=== PATIENT | male | born 1950 | race Caucasian/White ===

== ENCOUNTER 2016-11-09 18:16 | Emergency (ER) | payer OTHER, MEDICARE, BC ==
[2016-11-09 20:16] VITALS: BP 130/89
--- NOTE | 2016-11-09 20:37 | EDM.PDOC ---
ED HPI HEAD INJURY - General Chief Complaint: Head Injury Stated Complaint: FELL AT OPAL;[phone] Time Seen by Provider: 11/09/16 20:32 Source of Information: Reports: Patient History Limitations: Reports: No limitations - History of Present Illness INITIAL COMMENTS - FREE TEXT/NARRATIVE: was leaving [facility] with foods and tripped on something in ground landing on right side but c/o pain left should unable to raise without pain. states no LOC but did scratch up right face and right shoulder can move freely without pain but not left. - Related Data Allergies/ADRs: Allergies Allergy/AdvReac Type Severity Reaction Status Date / Time environmental Allergy Cannot Uncoded 11/09/16 19:30 Remember Home Meds: Home Meds Allopurinol [Zyloprim] 2 tab PO DAILY 11/05/13 [History] Aspirin [Ecotrin] 1 tab PO DAILY 11/05/13 [History] Cholecalciferol (Vitamin D3) [Vitamin D] 1 cap PO DAILY 11/05/13 [History] Digoxin [Digox] 1 tab PO DAILY 11/05/13 [History] Ezetimibe/Simvastatin [Vytorin 10-40 mg Tablet] 1 tab PO BEDTIME 11/05/13 [ History] Gabapentin [Neurontin] 600 mg PO BID 11/05/13 [History] Glimepiride [Amaryl] 6 mg PO BRK 11/05/13 [History] Isosorbide Mononitrate [Imdur] 30 mg PO DAILY 11/05/13 [History] Canagliflozin [Invokana] 100 mg PO DAILY 11/28/14 [History] Past Medical History HEENT History: Reports: Allergic rhinitis, Hard of hearing, Sinusitis, Other ( see below) Other HEENT History: deviated septum Cardiovascular History: Reports: Afib, CAD, High cholesterol, Stents, Other ( see below) Other Cardiovascular History: anticoagulant use Respiratory History: Reports: Sleep apnea Genitourinary History: Reports: BPH, Renal disease, Retention, urinary, Other ( see below) Other Genitourinary History: renal cyst, ED, frequency Musculoskeletal History: Reports: Arthritis Neurological History: Reports: Neuropathy, diabetic Endocrine/Metabolic History: Reports: Diabetes, type II Hematologic History: 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 Dermatologic History: Reports: Other (see below) Other Dermatologic History: actinic keratosis, BCC, - Past Surgical History Cardiovascular Surgical History: Reports: Coronary artery stent GI Surgical History: Reports: Colonoscopy Musculoskeletal Surgical History: Reports: Carpal tunnel Social & Family History - Tobacco Use Smoking Status *Q: Never Smoker Second Hand Smoke Exposure: No - Caffeine Use Caffeine Use: Reports: Coffee - Alcohol Use Days Per Week of Alcohol Use: 0 - Recreational Drug Use Recreational Drug Use: No ED ROS GENERAL - Review of Systems Review Of Systems: ROS reveals no pertinent complaints other than HPI. ED EXAM, HEAD INJURY - Physical Exam Exam: See Below Exam Limited By: No limitations General Appearance: alert, WD/WN, mild distress, other (pleseant but upset) Head: facial abrasions, other (right). No: Nix's Sign, raccoon eyes Nexus Criteria: No: posterior, midline cervical tenderness, evidence of intoxication, altered level of consciousness, focal neurological deficit, painful distracting injuries Ears: hearing grossly normal Throat/Mouth: Normal voice, No airway compromise Neck: non-tender, full range of motion Respiratory: no respiratory distress Cardiovascular: regular rate, rhythm Extremities: pain with movement, tenderness, other (left unable to ABDUCT fully. tender deltoid>, LUE NV wnl.) Neurologic: no motor/sensory deficits, alert, normal mood/affect, oriented x 3 Skin: Normal color, Warm/dry - Tricia Coma Score Best Eye Response ([place]): (4) open spontaneously Best Verbal Response (Tricia): (5) oriented Best Motor Response (Tricia): (6) obeys commands Tricia Total: 15 Course - Vital Signs Last Recorded V/S: Last Vital Signs Temp 36.7 C 11/09/16 20:15 Pulse 97 11/09/16 20:15 Resp 18 11/09/16 20:15 BP 130/89 11/09/16 20:15 Pulse Ox 100 11/09/16 20:15 - Orders/Labs/Meds Orders: Active Orders 24 hr Category Date Time Status Scapula Lt [CR] Urgent Exams 11/09/16 20:31 Taken Shoulder Comp Lt [CR] Urgent Exams 11/09/16 20:31 Taken - Re-Assessments/Exams Free Text/Narrative Re-Assessment/Exam: 11/09/16 21:20 results discussed with Pt & family. Departure - Departure Time of Disposition: 21:20 Disposition: Home, Self-Care 01 Condition: good Clinical Impression: Contusion of shoulder and upper arm Instructions: Contusion, [id number] Forms: ED Department Discharge Additional Instructions: 1) wear sling for comfort next 48 hours 2) use ice or heat for comfort 3) take tyelnol for pain 4) see family doctor Saturday for MRI SCAN of left shoulder 5) recheck if there is any change or concern - My Orders Last 24 Hours: My Active Orders 11/09/16 20:31 Scapula Lt [CR] Urgent Shoulder Comp Lt [CR] Urgent - Assessment/Plan Last 24 Hours: My Active Orders 11/09/16 20:31 Scapula Lt [CR] Urgent Shoulder Comp Lt [CR] Urgent
== END 2016-11-09 21:34 | disposition home or self-care (01) ==
LOC: DL.ED 18:16
DX: S40.011A Contusion of right shoulder, initial encounter (principal); I48.91 Unspecified atrial fibrillation; E78.00 Pure hypercholesterolemia, unspecified; I25.10 Atherosclerotic heart disease of native coronary artery without angina pectoris; E11.9 Type 2 diabetes mellitus without complications; W18.30XA Fall on same level, unspecified, initial encounter; Z79.899 Other long term (current) drug therapy
CPT/HCPCS: 73010-LT; 73030-LT; 99282; 99283

== ENCOUNTER 2016-12-21 18:12 | Emergency (ER) | payer MEDICARE, BC ==
[2016-12-21 19:01] VITALS: BP 109/74
[2016-12-21] MEDS ORDERED: Acetaminophen/HYDROcodone 325-10 MG Tab ONE (21:13)
[2016-12-21] MEDS ORDERED: Acetaminophen/HYDROcodone 325-10 MG Tab PO ONE (21:14)
[2016-12-21] MEDS ORDERED: Cyclobenzaprine 10 MG Tab PO ONE (21:14)
[2016-12-21] MEDS ORDERED: Cyclobenzaprine 10 MG Tab ONE (21:14)
--- NOTE | 2016-12-21 21:20 | EDM.PDOC ---
[id number]: BACK PAIN Time Seen by Provider: 12/21/16 19:00 Source of Information: Reports: Patient History Limitations: Reports: No Limitations - History of Present Illness INITIAL COMMENTS - FREE TEXT/NARRATIVE: c/o low back pain worse on right side, worse with change of position. No change in usual activity, No known injury. Working on equipment yesterday when first noticed but pain mild, worse today after lying on ground fixing farm equipment. Notes no weakness or numbness. No prior back problems or injuries. Onset: Gradual, Other (yesterday) Lower Back Pain Score (Numeric/FACES): 8 - Related Data Allergies Allergy/AdvReac Type Severity Reaction Status Date / Time environmental Allergy Cannot Uncoded 12/21/16 18:57 Remember Home Meds: Home Meds Allopurinol [Zyloprim] 2 tab PO DAILY 11/05/13 [History] Aspirin [Ecotrin] 1 tab PO DAILY 11/05/13 [History] Cholecalciferol (Vitamin D3) [Vitamin D] 1 cap PO DAILY 11/05/13 [History] Digoxin [Digox] 1 tab PO DAILY 11/05/13 [History] Ezetimibe/Simvastatin [Vytorin 10-40 mg Tablet] 1 tab PO BEDTIME 11/05/13 [ History] Gabapentin [Neurontin] 600 mg PO BID 11/05/13 [History] Glimepiride [Amaryl] 6 mg PO BRK 11/05/13 [History] Isosorbide Mononitrate [Imdur] 30 mg PO DAILY 11/05/13 [History] Canagliflozin [Invokana] 100 mg PO DAILY 11/28/14 [History] Past Medical History HEENT History: Reports: Allergic Rhinitis, Hard of Hearing, Sinusitis, Other ( See Below) Other HEENT History: deviated septum Cardiovascular History: Reports: Afib, CAD, High Cholesterol, Stents Other Cardiovascular History: anticoagulant use Respiratory History: Reports: Sleep Apnea Gastrointestinal History: Reports: None Genitourinary History: Reports: BPH, Renal Disease, Retention, Urinary Other Genitourinary History: renal cyst, ED, frequency Musculoskeletal History: Reports: Arthritis Neurological History: Reports: Neuropathy, Diabetic Psychiatric History: Reports: None Endocrine/Metabolic History: Reports: Diabetes, Type II 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 Immunologic History: Reports: None Oncologic (Cancer) History: Reports: None Dermatologic History: Reports: Other (See Below) Other Dermatologic History: actinic keratosis, BCC, - Past Surgical History Cardiovascular Surgical History: Reports: Coronary Artery Stent GI Surgical History: Reports: Colonoscopy Musculoskeletal Surgical History: Reports: Carpal Tunnel Social & Family History - Tobacco Use Smoking Status *Q: Never Smoker Second Hand Smoke Exposure: No - Caffeine Use Caffeine Use: Reports: Soda - Alcohol Use Days Per Week of Alcohol Use: 0 - Recreational Drug Use Recreational Drug Use: No ED ROS GENERAL - Review of Systems Review Of Systems: See Below Constitutional: Reports: No Symptoms HEENT: Reports: No Symptoms Respiratory: Reports: No Symptoms Cardiovascular: Reports: No Symptoms GI/Abdominal: Reports: No Symptoms Musculoskeletal: Reports: Back Pain. Denies: Leg Pain Skin: Reports: No Symptoms Neurological: Reports: No Symptoms. Denies: Difficulty Walking, Weakness ED EXAM,LOWER BACK PAIN/INJURY - Physical Exam Exam: See Below Exam Limited By: No Limitations General Appearance: Alert, Moderate Distress (with movment, pain improved while lying still) Eye Exam: Bilateral Eye: PERRL Ears: Normal External Exam Nose: Normal Inspection Throat/Mouth: Normal Inspection Head: Atraumatic, Normocephalic Neck: Normal Inspection Respiratory/Chest: No Respiratory Distress, Lungs Clear, Normal Breath Sounds Cardiovascular: Normal Peripheral Pulses, Irregularly Irregular (chronic afib) GI/Abdominal: Normal Bowel Sounds Back Exam: Decreased Range of Motion, Muscle Spasm, Paraspinal Tenderness ( right greater lumbar). No: Full Range of Motion, Vertebral Tenderness Extremities: Normal Inspection, Normal Range of Motion, Other (equal strength). No: Leg Pain Neurological: Alert, Normal Mood/Affect, Normal Dorsiflexion, Normal Plantar Flexion, Normal Gait, No Motor/Sensory Deficits, Oriented x 3 Psychiatric: Normal Affect Skin Exam: Warm, Dry, Intact, Normal Color Course - Vital Signs Last Recorded V/S: Last Vital Signs Temp 96.2 F 12/21/16 18:58 Pulse 72 12/21/16 18:58 Resp 18 12/21/16 18:58 BP 109/74 12/21/16 18:58 Pulse Ox 95 12/21/16 18:58 Orthostatic Blood Pressure [ 99/46 Standing] Orthostatic Blood Pressure [ 180/70 Sitting] Orthostatic Blood Pressure [ 118/77 Supine] - Orders/Labs/Meds Labs: Laboratory Tests 12/21/16 12/21/16 12/21/16 Range/Units 19:05 19:25 19:25 WBC 9.2 (5.0-10.0) 10^3/uL RBC 4.26 L (4.6-6.2) 10^6/uL Hgb 14.1 (14.0-18.0) g/dL Hct 42.1 (40.0-54.0) % MCV 98.8 (80-100) fL MCH 33.1 (27.0-34.0) pg MCHC 33.5 (33.0-35.0) g/dL Plt Count 107 L (150-450) 10^3/uL Neut % (Auto) 57.8 (42.2-75.2) % Lymph % (Auto) 27.7 (20.5-50.1) % [place] % (Auto) 12.2 H (2-8) % Eos % (Auto) 2.1 (1.0-3.0) % Baso % (Auto) 0.2 (0.0-1.0) % PT 15.9 H (9.0-12.0) SEC INR 1.6 H (0.9-1.2) Sodium (135-145) mmol/L Potassium (3.6-5.0) mmol/L Chloride (101-111) mmol/L Carbon Dioxide (21.0-31.0) mmol/L Anion Gap BUN (7-18) mg/dL Creatinine (0.6-1.3) mg/dL Est Cr Clr Drug Dosing mL/min Estimated GFR (MDRD) BUN/Creatinine Ratio Glucose (74-105) mg/dL Calcium (8.4-10.2) mg/dl Total Bilirubin (0.2-1.0) mg/dL AST (10-42) IU/L ALT (10-60) IU/L Alkaline Phosphatase (42-121) IU/L Total Protein (6.7-8.2) g/dl Albumin (3.2-5.5) g/dl Globulin Albumin/Globulin Ratio Urine Color Yellow (YELLOW) Urine Appearance Clear (CLEAR) Urine pH 6.5 (5.0-9.0) Ur Specific [place] 1.020 (1.005-1.030) Urine Protein Negative (NEGATIVE) Urine Glucose (UA) 500 H (NEGATIVE) Urine Ketones Negative (NEGATIVE) Urine Occult Blood Negative (NEGATIVE) Urine Nitrite Negative (NEGATIVE) Urine Bilirubin Negative (NEGATIVE) Urine Urobilinogen 0.2 (0.2-1.0) mg/dL Ur Leukocyte Esterase Negative (NEGATIVE) Urine RBC 0-5 /HPF Urine WBC 0-5 (0-5/HPF) /HPF Ur Epithelial Cells Rare /HPF Urine Bacteria Rare (0-FEW/HPF) /HPF 12/21/16 Range/Units 19:25 WBC (5.0-10.0) 10^3/uL RBC (4.6-6.2) 10^6/uL Hgb (14.0-18.0) g/dL Hct (40.0-54.0) % MCV (80-100) fL MCH (27.0-34.0) pg MCHC (33.0-35.0) g/dL Plt Count (150-450) 10^3/uL Neut % (Auto) (42.2-75.2) % Lymph % (Auto) (20.5-50.1) % [place] % (Auto) (2-8) % Eos % (Auto) (1.0-3.0) % Baso % (Auto) (0.0-1.0) % PT (9.0-12.0) SEC INR (0.9-1.2) Sodium 133 L (135-145) mmol/L Potassium 4.3 (3.6-5.0) mmol/L Chloride 100 L (101-111) mmol/L Carbon Dioxide 28.0 (21.0-31.0) mmol/L Anion Gap 9.3 BUN 27 H (7-18) mg/dL Creatinine 1.5 H (0.6-1.3) mg/dL Est Cr Clr Drug Dosing 54.80 mL/min Estimated GFR (MDRD) 47 BUN/Creatinine Ratio 18.00 Glucose 138 H (74-105) mg/dL Calcium 9.0 (8.4-10.2) mg/dl Total Bilirubin 0.8 (0.2-1.0) mg/dL AST 45 H (10-42) IU/L ALT 42 (10-60) IU/L Alkaline Phosphatase 94 (42-121) IU/L Total Protein 6.8 (6.7-8.2) g/dl Albumin 3.9 (3.2-5.5) g/dl Globulin 2.9 Albumin/Globulin Ratio 1.34 Urine Color (YELLOW) Urine Appearance (CLEAR) Urine pH (5.0-9.0) Ur Specific [place] (1.005-1.030) Urine Protein (NEGATIVE) Urine Glucose (UA) (NEGATIVE) Urine Ketones (NEGATIVE) Urine Occult Blood (NEGATIVE) Urine Nitrite (NEGATIVE) Urine Bilirubin (NEGATIVE) Urine Urobilinogen (0.2-1.0) mg/dL Ur Leukocyte Esterase (NEGATIVE) Urine RBC /HPF Urine WBC (0-5/HPF) /HPF Ur Epithelial Cells /HPF Urine Bacteria (0-FEW/HPF) /HPF Meds: Medications Discontinued Medications Generic Name Dose Route Start Last Admin Trade Name Freq PRN Reason Stop Dose Admin Hydrocodone Bitart/Acetaminophen Confirm 12/21/16 21:13 12/21/16 21:22 [place] 325-10 Mg Administered 12/21/16 21:14 Not Given Dose 2 tab .ROUTE .STK-MED ONE Cyclobenzaprine HCl Confirm 12/21/16 21:14 12/21/16 21:22 Flexeril Administered 12/21/16 21:15 Not Given Dose 20 mg .ROUTE .STK-MED ONE - Radiology Interpretation Free Text/Narrative:: CT acute L3 compression fracture, incidental finding 3cm infrarenal aneurysm - Re-Assessments/Exams Free Text/Narrative Re-Assessment/Exam: 12/23/16 05:55 Patient notified incidental finding on CT instructed to follow with PCP, Also increase coumadin from 1 1/2 tabs daily to 2 through and recheck on Saturday. Departure - Departure Time of Disposition: 21:14 Disposition: Home, Self-Care 01 Condition: good Clinical Impression: Subtherapeutic anticoagulation Lumbar compression fracture Qualifiers: Encounter type: initial encounter Fracture type: closed Qualified Code(s): S32.000A - Wedge compression fracture of unspecified lumbar vertebra, initial encounter for closed fracture Low back pain Qualifiers: Chronicity: acute Back pain laterality: right Sciatica presence: without sciatica Qualified Code(s): M54.5 - Low back pain - Discharge Information Instructions: Back Pain, Adult, [id number], Muscle Strain, [id number] Referrals: Logrono,Almarie Kenzie, MD [Primary Care Provider] - Forms: ED Department Discharge Additional Instructions: flexeril 10mg 1/2 to 1 every 8 hours as needed for muscle spasm (2 home, Rx #10 ) Hydrocodone 10/325 one every 6 hours as needed for severe pain (#2 home, Rx #1) no refill) ice or heat to low back for comfort increase coumadin to 2 full tablets this weekend and 1 1/2 rest of week and recheck INR next week clinic follow up one week
== END 2016-12-21 21:26 | disposition home or self-care (01) ==
LOC: DL.ED 18:12
DX: S32.030A Wedge compression fracture of third lumbar vertebra, initial encounter for closed fracture (principal); R79.1 Abnormal coagulation profile; I48.91 Unspecified atrial fibrillation; I25.10 Atherosclerotic heart disease of native coronary artery without angina pectoris; E78.00 Pure hypercholesterolemia, unspecified; M19.90 Unspecified osteoarthritis, unspecified site; E11.40 Type 2 diabetes mellitus with diabetic neuropathy, unspecified; Z91.09 Other allergy status, other than to drugs and biological substances; Z79.82 Long term (current) use of aspirin; Z79.899 Other long term (current) drug therapy; X58.XXXA Exposure to other specified factors, initial encounter
CPT/HCPCS: 36415; 72131; 80053; 81001; 85025; 85610; 99284; A9270; 99283

== ENCOUNTER 2017-06-29 19:19 | Inpatient (IN) | payer MEDICARE, BC ==
[2017-06-29] MEDS ORDERED: Sodium Chloride 0.9% 1,000 ML IV ONE (19:52)
--- NOTE | 2017-06-29 19:56 | EDM.PDOC ---
ED HPI GENERAL MEDICAL PROBLEM - General Chief Complaint: Skin Complaint Stated Complaint: R LEG SORE Time Seen by Provider: 06/29/17 19:53 Source of Information: Reports: Patient, Family History Limitations: Reports: No Limitations - History of Present Illness INITIAL COMMENTS - FREE TEXT/NARRATIVE: pt states worsening of right leg swelling pain redness over past 2 weeks. Right Lower Leg Pain Score (Numeric/FACES): 4 - Related Data Allergies Allergy/AdvReac Type Severity Reaction Status Date / Time environmental Allergy Cannot Uncoded 06/29/17 19:30 Remember Home Meds: Home Meds Allopurinol [Zyloprim] 2 tab PO DAILY 11/05/13 [History] Aspirin [Ecotrin] 1 tab PO DAILY 11/05/13 [History] Cholecalciferol (Vitamin D3) [Vitamin D] 1 cap PO DAILY 11/05/13 [History] Ezetimibe/Simvastatin [Vytorin 10-40 mg Tablet] 1 tab PO BEDTIME 11/05/13 [ History] Gabapentin [Neurontin] 600 mg PO BID 11/05/13 [History] Glimepiride [Amaryl] 6 mg PO BID 11/05/13 [History] Isosorbide Mononitrate [Imdur] 30 mg PO DAILY 11/05/13 [History] Canagliflozin [Invokana] 100 mg PO DAILY 11/28/14 [History] Cetirizine [ZyrTEC] 10 mg PO DAILY 06/29/17 [History] Liraglutide [Victoza] 1.2 mg SUBCUT DAILY 06/29/17 [History] Magnesium 250 mg PO DAILY 06/29/17 [History] Metoprolol Succinate 100 mg PO QPM 06/29/17 [History] Niacin [Niacin ER] 750 mg PO QPM 06/29/17 [History] Primidone [Mysoline] 50 mg PO BEDTIME 06/29/17 [History] Tamsulosin [Flomax] 0.4 mg PO BIDPC 06/29/17 [History] Verapamil HCl [Verapamil ER] 120 mg PO QPM 06/29/17 [History] Warfarin Sodium [Jantoven] 1 tab PO DAILY 06/29/17 [History] rOPINIRole [Requip] 1 mg PO BEDTIME 06/29/17 [History] Past Medical History HEENT History: Reports: Allergic Rhinitis, Hard of Hearing, Sinusitis, Other ( See Below) Other HEENT History: deviated septum Cardiovascular History: Reports: Afib, CAD, High Cholesterol, Stents Other Cardiovascular History: anticoagulant use Respiratory History: Reports: Sleep Apnea Gastrointestinal History: Reports: None Genitourinary History: Reports: BPH, Renal Disease, Retention, Urinary Other Genitourinary History: renal cyst, ED, frequency Musculoskeletal History: Reports: Arthritis Neurological History: Reports: Neuropathy, Diabetic Psychiatric History: Reports: None Endocrine/Metabolic History: Reports: Diabetes, Type II 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 Immunologic History: Reports: None Oncologic (Cancer) History: Reports: None Dermatologic History: Reports: Other (See Below) Other Dermatologic History: actinic keratosis, BCC, - Past Surgical History Cardiovascular Surgical History: Reports: Coronary Artery Stent GI Surgical History: Reports: Colonoscopy Musculoskeletal Surgical History: Reports: Carpal Tunnel Social & Family History - Tobacco Use Smoking Status *Q: Never Smoker Second Hand Smoke Exposure: No - Caffeine Use Caffeine Use: Reports: Soda - Alcohol Use Days Per Week of Alcohol Use: 0 - Recreational Drug Use Recreational Drug Use: No ED ROS GENERAL - Review of Systems Review Of Systems: ROS reveals no pertinent complaints other than HPI. ED EXAM, SKIN/RASH Exam: See Below Exam Limited By: No Limitations General Appearance: Alert, WD/WN, Mild Distress, Other (discomfort) Ears: Hearing Grossly Normal Throat/Mouth: Normal Voice, No Airway Compromise Head: Atraumatic Neck: Non-Tender, Full Range of Motion Respiratory/Chest: No Respiratory Distress Cardiovascular: Regular Rate, Rhythm GI/Abdominal: Soft, Non-Tender Extremities: Leg Pain, Increased Warmth (right leg celluilitis without lymphangitis, NV wnl, gait limited to pain), Redness, Other Neurological: Alert, Oriented, Normal Cognition, No Motor/Sensory Deficits Psychiatric: Normal Affect, Normal Mood Skin: Warm, Dry, Normal Color Location, Skin: Lower Extremity, Right Associated features: Warmth, Tenderness, Swelling, Inflammation Lymphatic: No Adenopathy Course - Vital Signs Last Recorded V/S: Last Vital Signs Temp 36.9 C 06/29/17 19:21 Pulse 102 H 06/29/17 19:21 Resp 18 06/29/17 19:21 BP 96/45 L 06/29/17 19:21 Pulse Ox 96 06/29/17 19:21 - Orders/Labs/Meds Orders: Active Orders 24 hr Category Date Time Status CULTURE BLOOD [BC] Stat Lab 06/29/17 20:00 Received Sodium Chloride 0.9% [Normal Saline] 1,000 ml Med 06/29/17 19:52 Active IV .BOLUS Medication Orders Sodium Chloride (Normal Saline) 1,000 mls @ 500 mls/hr IV .BOLUS ONE Stop: 06/29/17 21:51 Last Admin: 06/29/17 20:07 Dose: 500 mls/hr Labs: Laboratory Tests 06/29/17 06/29/17 06/29/17 Range/Units 20:00 20:00 20:00 WBC 9.9 (5.0-10.0) 10^3/uL RBC 4.19 L (4.6-6.2) 10^6/uL Hgb 14.1 (14.0-18.0) g/dL Hct 42.1 (40.0-54.0) % MCV 100.5 H (80-100) fL MCH 33.7 (27.0-34.0) pg MCHC 33.5 (33.0-35.0) g/dL Plt Count 188 D (150-450) 10^3/uL Neut % (Auto) 63.9 (42.2-75.2) % Lymph % (Auto) 22.2 (20.5-50.1) % [place] % (Auto) 11.9 H (2-8) % Eos % (Auto) 1.8 (1.0-3.0) % Baso % (Auto) 0.2 (0.0-1.0) % Sodium 137 (135-145) mmol/L Potassium 3.9 (3.6-5.0) mmol/L Chloride 98 L (101-111) mmol/L Carbon Dioxide 30.0 (21.0-31.0) mmol/L Anion Gap 12.9 BUN 26 H (7-18) mg/dL Creatinine 1.6 H (0.6-1.3) mg/dL Est Cr Clr Drug Dosing 51.38 mL/min Estimated GFR (MDRD) 43 BUN/Creatinine Ratio 16.25 Glucose 128 H (74-105) mg/dL Lactic Acid 1.6 (0.5-2.2) mmol/L Calcium 9.5 (8.4-10.2) mg/dl Total Bilirubin 1.3 H (0.2-1.0) mg/dL AST 56 H (10-42) IU/L ALT 38 (10-60) IU/L Alkaline Phosphatase 142 H (42-121) IU/L Total Protein 8.0 (6.7-8.2) g/dl Albumin 3.7 (3.2-5.5) g/dl Globulin 4.3 Albumin/Globulin Ratio 0.86 Meds: Medications Generic Name Dose Route Start Last Admin Trade Name Freq PRN Reason Stop Dose Admin Sodium Chloride 1,000 mls @ 500 mls/hr 06/29/17 19:52 06/29/17 20:07 Normal Saline IV 06/29/17 21:51 500 mls/hr .BOLUS ONE Administration - Re-Assessments/Exams Free Text/Narrative Re-Assessment/Exam: 06/29/17 20:[address] Alexander who kindly admitted pt. Departure - Departure Time of Disposition: 20:59 Disposition: Admitted As Inpatient 66 Condition: Good Clinical Impression: Cellulitis Qualifiers: Site of cellulitis: extremity Site of cellulitis of extremity: lower extremity Laterality: right Qualified Code(s): L03.115 - Cellulitis of right lower limb - Discharge Information Forms: ED Department Discharge - My Orders Last 24 Hours: My Active Orders 06/29/17 19:52 Sodium Chloride 0.9% [Normal Saline] 1,000 ml IV .BOLUS 06/29/17 20:00 CULTURE BLOOD [BC] Stat - Assessment/Plan Last 24 Hours: My Active Orders 06/29/17 19:52 Sodium Chloride 0.9% [Normal Saline] 1,000 ml IV .BOLUS 06/29/17 20:00 CULTURE BLOOD [BC] Stat
[2017-06-29] MEDS ORDERED: oxyCODONE 5 MG Tab PO PRN (21:19)
[2017-06-29] MEDS ORDERED: Zolpidem 5 MG Tab PO PRN (21:19)
[2017-06-29] MEDS ORDERED: Acetaminophen 325 MG Tab PO PRN (21:19)
--- NOTE | 2017-06-29 21:33 | PCM.HP ---
H&P History of Present Illness - General Date of Service: 06/29/17 Admit Problem/Dx: Admission Diagnosis/Problem Admission Diagnosis/Problem Cellulitis Source of Information: Patient - History of Present Illness Initial Comments - Free Text/Narative: The patient is a 66-year-old gentleman with a history of coronary artery disease , diabetes, peripheral neuropathy. The patient has a chronic long-standing leg edema, chronic kidney disease. The patient presented with the continued right leg redness, pain. Both legs are equally swollen. There was a low-grade temperature of 100 few days ago. No chills associated with this No chest pain or shortness of breath. Right Lower Leg Pain Score (Numeric/FACES): 4 - Related Data Allergies/Adverse Reactions: Allergies Allergy/AdvReac Type Severity Reaction Status Date / Time environmental Allergy Mild Headache Uncoded 06/29/17 21:22 Home Medications: Home Meds Allopurinol [Zyloprim] 2 tab PO DAILY 11/05/13 [History] Aspirin [Ecotrin] 1 tab PO DAILY 11/05/13 [History] Cholecalciferol (Vitamin D3) [Vitamin D] 1 cap PO DAILY 11/05/13 [History] Ezetimibe/Simvastatin [Vytorin 10-40 mg Tablet] 1 tab PO BEDTIME 11/05/13 [ History] Gabapentin [Neurontin] 600 mg PO BID 11/05/13 [History] Glimepiride [Amaryl] 6 mg PO BID 11/05/13 [History] Isosorbide Mononitrate [Imdur] 30 mg PO DAILY 11/05/13 [History] Canagliflozin [Invokana] 100 mg PO DAILY 11/28/14 [History] Cetirizine [ZyrTEC] 10 mg PO DAILY 06/29/17 [History] Liraglutide [Victoza] 1.2 mg SUBCUT DAILY 06/29/17 [History] Magnesium 250 mg PO DAILY 06/29/17 [History] Metoprolol Succinate 100 mg PO QPM 06/29/17 [History] Niacin [Niacin ER] 750 mg PO QPM 06/29/17 [History] Primidone [Mysoline] 50 mg PO BEDTIME 06/29/17 [History] Tamsulosin [Flomax] 0.4 mg PO BIDPC 06/29/17 [History] Verapamil HCl [Verapamil ER] 120 mg PO QPM 06/29/17 [History] Warfarin Sodium [Jantoven] 1 tab PO DAILY 06/29/17 [History] rOPINIRole [Requip] 1 mg PO BEDTIME 06/29/17 [History] Past Medical History HEENT History: Reports: Allergic Rhinitis, Hard of Hearing, Sinusitis, Other ( See Below) Other HEENT History: deviated septum Cardiovascular History: Reports: Afib, CAD, High Cholesterol, Stents Other Cardiovascular History: anticoagulant use Respiratory History: Reports: Sleep Apnea Gastrointestinal History: Reports: None Genitourinary History: Reports: BPH, Renal Disease, Retention, Urinary Other Genitourinary History: renal cyst, ED, frequency Musculoskeletal History: Reports: Arthritis Neurological History: Reports: Neuropathy, Diabetic Psychiatric History: Reports: None Endocrine/Metabolic History: Reports: Diabetes, Type II 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 Immunologic History: Reports: None Oncologic (Cancer) History: Reports: None Dermatologic History: Reports: Other (See Below) Other Dermatologic History: actinic keratosis, BCC, - Past Surgical History Cardiovascular Surgical History: Reports: Coronary Artery Stent GI Surgical History: Reports: Colonoscopy Musculoskeletal Surgical History: Reports: Carpal Tunnel Social & Family History - Tobacco Use Smoking Status *Q: Never Smoker Second Hand Smoke Exposure: No - Caffeine Use Caffeine Use: Reports: Soda - Alcohol Use Days Per Week of Alcohol Use: 0 - Recreational Drug Use Recreational Drug Use: No H&P Review of Systems - Review of Systems: Review Of Systems: See Below General: Reports: Fever. Denies: Chills Pulmonary: Denies: Shortness of Breath, Wheezing Cardiovascular: Reports: Edema. Denies: Chest Pain Gastrointestinal: Denies: Abdominal Pain Genitourinary: Denies: Dysuria Skin: Reports: Other (Right leg erythema) Psychiatric: Denies: Confusion Exam - Exam Exam: See Below - Vital Signs Vital Signs: Last Vital Signs Temp 36.9 C 06/29/17 19:21 Pulse 102 H 06/29/17 19:21 Resp 18 06/29/17 19:21 BP 96/45 L 06/29/17 19:21 Pulse Ox 96 06/29/17 19:21 Weight: 117.934 kg - Exam Quality Assessment: DVT Prophylaxis General: Alert Neck: Supple Lungs: Clear to Auscultation, Normal Respiratory Effort Cardiovascular: Irregular Rhythm GI/Abdominal Exam: Normal Bowel Sounds, Soft, Non-Tender Extremities: Pedal Edema (Bilateral 2+), Increased Warmth (Right lower extremity with redness), Redness Neuro Extensive - Mental Status: Alert, Oriented x3, Normal Mood/Affect - Patient Data Result Diagrams: 06/29/17 20:00 06/29/17 20:00 *Q Meaningful Use (ADM) - VTE *Q VTE Criteria *Q: - Stroke *Q Stroke Criteria *Q: - AMI *Q AMI Criteria *Q: - Problem List (1) Cellulitis SNOMED Code(s): 847922255 ICD Code: L03.90 - CELLULITIS, UNSPECIFIED Status: Acute Current Visit: Yes Qualifiers: Site of cellulitis: extremity Site of cellulitis of extremity: lower extremity Laterality: right Qualified Code(s): L03.115 - Cellulitis of right lower limb Problem List Initiated/Reviewed/Updated: Yes Orders Last 24hrs: Active Orders 24 hr Category Date Time Status Patient Status [ADT] Routine ADT 06/29/17 21:19 Ordered Antiembolic Devices [RC] PER UNIT ROUTINE Care 06/29/17 21:21 Ordered Blood Glucose Check, Bedside [RC] QIDACANDBED Care 06/29/17 21:19 Ordered Oxygen Therapy [RC] PRN Care 06/29/17 21:19 Ordered Peripheral IV Care [RC] . DIRECTED Care 06/29/17 21:21 Ordered Up With Assistance [RC] ASDIRECTED Care 06/29/17 21:19 Ordered VTE/DVT Education [RC] PER UNIT ROUTINE Care 06/29/17 21:19 Ordered Vital Signs [RC] Q4H Care 06/29/17 21:19 Ordered Regular Diet [DIET] Diet 06/29/17 Breakfast Ordered BASIC METABOLIC PANEL,BMP [CHEM] AM Lab 06/30/17 05:11 Ordered CBC WITH AUTO DIFF [HEME] AM Lab 06/30/17 05:11 Ordered CULTURE BLOOD [BC] Stat Lab 06/29/17 21:18 Ordered CULTURE WOUND [RM] Routine Lab 06/29/17 21:27 Uncollected Acetaminophen [Tylenol] Med 06/29/17 21:19 Ordered 650 mg PO Q4H PRN Allopurinol [Zyloprim] Med 06/30/17 09:00 Ordered 2 tab PO DAILY Aspirin [Halfprin] Med 06/30/17 09:00 Ordered 1 tab PO DAILY Ezetimibe/Simvastatin [Vytorin 10-40 mg Tablet] Med 06/30/17 21:00 Ordered 1 tab PO BEDTIME Gabapentin Med 06/30/17 09:00 Ordered 600 mg PO BID Glimepiride Med 06/30/17 09:00 Ordered 6 mg PO BID Insulin Aspart [NovoLOG] Med 06/30/17 08:00 Ordered See Protocol SUBCUT TIDAC Isosorbide Mononitrate [Imdur] Med 06/30/17 09:00 Ordered 30 mg PO DAILY Magnesium [Magnesium] Med 06/30/17 09:00 Ordered 250 mg PO DAILY Metoprolol Succinate [Metoprolol Succinate] Med 06/29/17 21:30 Ordered 100 mg PO QPM Niacin [Niacin ER] Med 06/29/17 21:30 Ordered 750 mg PO QPM Primidone [Mysoline] Med 06/30/17 21:00 Ordered 50 mg PO BEDTIME Sodium Chloride 0.9% [Saline Flush] Med 06/29/17 21:19 Ordered 10 ml FLUSH ASDIRECTED PRN Tamsulosin [Flomax] Med 06/30/17 08:30 Ordered 0.4 mg PO BIDPC Verapamil HCl [Verapamil ER] Med 06/29/17 21:30 Ordered 120 mg PO QPM Warfarin Pharmacy to Dose [Pharmacy to Dose - Warfarin] Med 06/29/17 21:30 Ordered 1 dose .XX ASDIRECTED Zolpidem [Ambien] Med 06/29/17 21:19 Ordered 5 mg PO BEDTIME PRN ceFAZolin [Ancef] 1 gm Med 06/29/17 22:00 Ordered Premix Bag 1 bag IV Q8HR oxyCODONE Med 06/29/17 21:19 Ordered 5 mg PO Q4H PRN Antiembolic Hose [OM.PC] Per Unit Routine Oth 06/29/17 21:20 Ordered Blood Culture x2 Reflex Set [OM.PC] Stat Oth 06/29/17 21:18 Ordered Peripheral IV Insertion Adult [OM.PC] Routine Oth 06/29/17 21:19 Ordered Saline Lock Insert [OM.PC] Routine Oth 06/29/17 21:19 Ordered Resuscitation Status Routine Resus Stat 06/29/17 21:19 Ordered Medication Orders Acetaminophen (Tylenol) 650 mg PO Q4H PRN PRN Reason: Pain (Mild 1-3)/fever Allopurinol (Zyloprim) mg PO DAILY [facility] Aspirin (Halfprin) mg PO DAILY [facility] Sodium Chloride (Normal Saline) 1,000 mls @ 500 mls/hr IV .BOLUS ONE Stop: 06/29/17 21:51 Last Admin: 06/29/17 20:07 Dose: 500 mls/hr Cefazolin Sodium/Dextrose 1 gm (/ Premix) 50 mls @ 100 mls/hr IV Q8HR [facility] Insulin Aspart (Novolog) 0 unit SUBCUT TIDAC [facility] PRN Reason: Protocol Isosorbide Mononitrate (Imdur) 30 mg PO DAILY [facility] Non-Formulary Medication (Ezetimibe/Simvastatin [Vytorin 10-40 Mg Tablet]) 1 tab PO BEDTIME [facility] Non-Formulary Medication (Gabapentin) 600 mg PO BID [facility] Non-Formulary Medication (Glimepiride) 6 mg PO BID [facility] Non-Formulary Medication (Magnesium [Magnesium]) 250 mg PO DAILY [facility] Non-Formulary Medication (Metoprolol Succinate [Metoprolol Succinate]) 100 mg PO QPM [facility] Non-Formulary Medication (Niacin [Niacin Er]) 750 mg PO QPM [facility] Non-Formulary Medication (Verapamil Hcl [Verapamil Er]) 120 mg PO QPM [facility] Oxycodone HCl (Oxycodone) 5 mg PO Q4H PRN PRN Reason: Pain (moderate 4-6) Primidone (Mysoline) 50 mg PO BEDTIME [facility] Sodium Chloride (Saline Flush) 10 ml FLUSH ASDIRECTED PRN PRN Reason: Keep Vein Open Tamsulosin HCl (Flomax) 0.4 mg PO BIDPC [facility] Warfarin Sodium (Pharmacy To Dose - Warfarin) 1 dose .XX ASDIRECTED [facility] Zolpidem Tartrate (Ambien) 5 mg PO BEDTIME PRN PRN Reason: Sleep Assessment/Plan Comment:: The patient is a 66-year-old gentleman with a history of chronic swelling, diabetes, chronic kidney disease, coronary artery disease, neuropathy. #1 right leg cellulitis Presented with swelling, redness, warmth, tenderness Will obtain blood culture, wound culture Start the patient on cefazolin Use compression stocking to help with the edema #2 atrial fibrillation Appears to controlled ventricular rate Continue Coumadin for stroke prophylaxis and DVT prophylaxis #3 coronary artery disease Continue to treat with metoprolol #4 diabetes complicated with neuropathy Continue home medications Monitor blood sugar, use supplemental insulin as needed. #5 neuropathy Continue home medications Compression stocking
[2017-06-29] MEDS: ceFAZolin 1 GM in Premix Bag 1 BAG IV SCH (21:50)
[2017-06-29] MEDS ORDERED: Warfarin 5 MG Tab PO SCH (22:00)
[2017-06-29] MEDS ORDERED: Warfarin 2 MG Tab PO SCH (22:00)
[2017-06-29] MEDS: Metoprolol Succinate 50 MG Tab.ER PO SCH (22:13)
[2017-06-29] MEDS: Niacin 500 MG Tab.ER PO SCH (22:14)
[2017-06-29] MEDS: Verapamil 240 MG Tab.ER PO SCH (22:18)
[2017-06-29] MEDS: Simvastatin 40 MG Tab PO SCH (22:34)
[2017-06-29] MEDS: Ezetimibe 10 MG Tab PO SCH (22:34)
[2017-06-30] MEDS: ceFAZolin 1 GM in Premix Bag 1 BAG IV SCH ×3 (05:22→21:27)
[2017-06-30] MEDS: Sodium Chloride 0.9% 10 ML Syringe FLUSH PRN ×4 (05:23→22:01)
[2017-06-30] MEDS: Potassium Chloride 10 MEQ Tab.ER PO SCH (10:21)
[2017-06-30] MEDS: Aspirin 81 MG Tab.EC PO SCH (10:22)
[2017-06-30] MEDS: Glimepiride 2 MG Tab PO SCH ×2 (10:22→21:13)
[2017-06-30] MEDS: Tamsulosin 0.4 MG Cap.ER PO SCH ×2 (10:22→17:35)
[2017-06-30] MEDS: Furosemide 20 MG Tab PO SCH (10:23)
[2017-06-30] MEDS: Gabapentin 300 MG Cap PO SCH ×2 (10:23→21:14)
[2017-06-30] MEDS: Allopurinol 100 MG Tab PO SCH (10:24)
[2017-06-30] MEDS: Isosorbide Mononitrate 30 MG Tab.ER PO SCH (10:28)
[2017-06-30] MEDS: Insulin Aspart 100 Units/ML 3 ML Pen SUBCUT SCH ×3 (10:35→17:34)
--- NOTE | 2017-06-30 10:49 | PCM.PN ---
- General Info Date of Service: 06/30/17 Admission Dx/Problem (Free Text): Admission Diagnosis/Problem Admission Diagnosis/Problem Cellulitis Subjective Update: Had low-grade temperature overnight. continues to have right leg erythema associated with swelling that started days prior to admission. No associated chills No shortness of breath, abdominal pain, headache. Functional Status: Reports: Tolerating Diet - Review of Systems General: Reports: Fever Pulmonary: Denies: Shortness of Breath Cardiovascular: Denies: Chest Pain Gastrointestinal: Denies: Abdominal Pain Genitourinary: Denies: Dysuria - Patient Data Vitals - Most Recent: Last Vital Signs Temp 37.4 C 06/30/17 10:38 Pulse 92 06/30/17 10:38 Resp 20 06/30/17 10:38 BP 110/65 06/30/17 10:38 Pulse Ox 95 06/30/17 10:38 Weight - Most Recent: 117.934 kg I&O - Last 24 Hours: Intake & Output 06/29/17 06/30/17 06/30/17 22:59 06:59 14:59 Intake Total 1029 249 780 Balance 1029 249 780 Lab Results Last 24 Hours: Laboratory Results - last 24 hr 06/30/17 06/30/17 06/30/17 Range/Units 05:45 05:45 05:45 WBC 9.4 (5.0-10.0) 10^3/uL RBC 3.89 L (4.6-6.2) 10^6/uL Hgb 13.1 L (14.0-18.0) g/dL Hct 38.9 L (40.0-54.0) % MCV 100.0 (80-100) fL MCH 33.7 (27.0-34.0) pg MCHC 33.7 (33.0-35.0) g/dL Plt Count 157 (150-450) 10^3/uL Neut % (Auto) 55.1 (42.2-75.2) % Lymph % (Auto) 30.4 (20.5-50.1) % [place] % (Auto) 12.1 H (2-8) % Eos % (Auto) 2.2 (1.0-3.0) % Baso % (Auto) 0.2 (0.0-1.0) % PT 22.4 H D (9.0-12.0) SEC INR 2.2 H (0.9-1.2) Sodium 137 (135-145) mmol/L Potassium 3.9 (3.6-5.0) mmol/L Chloride 101 (101-111) mmol/L Carbon Dioxide 28.0 (21.0-31.0) mmol/L Anion Gap 11.9 BUN 22 H (7-18) mg/dL Creatinine 1.4 H (0.6-1.3) mg/dL Est Cr Clr Drug Dosing 58.71 mL/min Estimated GFR (MDRD) 50 Glucose 90 (74-105) mg/dL POC Glucose (70-105) mg/dl Calcium 9.0 (8.4-10.2) mg/dl 06/30/17 Range/Units 07:41 WBC (5.0-10.0) 10^3/uL RBC (4.6-6.2) 10^6/uL Hgb (14.0-18.0) g/dL Hct (40.0-54.0) % MCV (80-100) fL MCH (27.0-34.0) pg MCHC (33.0-35.0) g/dL Plt Count (150-450) 10^3/uL Neut % (Auto) (42.2-75.2) % Lymph % (Auto) (20.5-50.1) % [place] % (Auto) (2-8) % Eos % (Auto) (1.0-3.0) % Baso % (Auto) (0.0-1.0) % PT (9.0-12.0) SEC INR (0.9-1.2) Sodium (135-145) mmol/L Potassium (3.6-5.0) mmol/L Chloride (101-111) mmol/L Carbon Dioxide (21.0-31.0) mmol/L Anion Gap BUN (7-18) mg/dL Creatinine (0.6-1.3) mg/dL Est Cr Clr Drug Dosing mL/min Estimated GFR (MDRD) Glucose (74-105) mg/dL POC Glucose 92 (70-105) mg/dl Calcium (8.4-10.2) mg/dl Med Orders - Current: Current Medications Acetaminophen (Tylenol) 650 mg PO Q4H PRN PRN Reason: Pain (Mild 1-3)/fever Allopurinol (Zyloprim) 200 mg PO DAILY [facility] Last Admin: 06/30/17 10:24 Dose: 200 mg Aspirin (Halfprin) 81 mg PO DAILY [facility] Last Admin: 06/30/17 10:22 Dose: 81 mg Ezetimibe (Zetia) 10 mg PO BEDTIME [facility] Last Admin: 06/29/17 22:34 Dose: 10 mg Furosemide (Lasix) 20 mg PO DAILY [facility] Last Admin: 06/30/17 10:23 Dose: 20 mg Gabapentin (Neurontin) 600 mg PO BID [facility] Last Admin: 06/30/17 10:23 Dose: 600 mg Glimepiride (Amaryl) 6 mg PO BID [facility] Last Admin: 06/30/17 10:22 Dose: 6 mg Cefazolin Sodium/Dextrose 1 gm (/ Premix) 50 mls @ 100 mls/hr IV Q8HR [facility] Last Admin: 06/30/17 05:22 Dose: 100 mls/hr Insulin Aspart (Novolog) 0 unit SUBCUT TIDAC [facility] PRN Reason: Protocol Last Admin: 06/30/17 10:35 Dose: Not Given Isosorbide Mononitrate (Imdur) 30 mg PO DAILY [facility] Last Admin: 06/30/17 10:28 Dose: 30 mg Magnesium Oxide (Magnesium Oxide) 250 mg PO DAILY [facility] Last Admin: 06/30/17 10:24 Dose: 250 mg Metoprolol Succinate (Toprol Xl) 100 mg PO BEDTIME [facility] Last Admin: 06/29/17 22:13 Dose: 100 mg Niacin (Niaspan) 750 mg PO BEDTIME [facility] Last Admin: 06/29/17 22:14 Dose: 750 mg Oxycodone HCl (Oxycodone) 5 mg PO Q4H PRN PRN Reason: Pain (moderate 4-6) Potassium Chloride (Klor-Con 10) 20 meq PO WITHBREAKFAST [facility] Last Admin: 06/30/17 10:21 Dose: 20 meq Primidone (Mysoline) 50 mg PO BEDTIME [facility] Simvastatin (Zocor) 40 mg PO BEDTIME [facility] Last Admin: 06/29/17 22:34 Dose: 40 mg Sodium Chloride (Saline Flush) 10 ml FLUSH ASDIRECTED PRN PRN Reason: Keep Vein Open Last Admin: 06/30/17 05:23 Dose: 10 ml Tamsulosin HCl (Flomax) 0.4 mg PO BIDPC [facility] Last Admin: 06/30/17 10:22 Dose: 0.4 mg Verapamil HCl (Calan Sr) 120 mg PO BEDTIME [facility] Last Admin: 06/29/17 22:18 Dose: 120 mg Warfarin Sodium (Pharmacy To Dose - Warfarin) 1 dose .XX ASDIRECTED [facility] Warfarin Sodium (Coumadin) 6 mg PO SuMoWeFr@1400 [facility] Warfarin Sodium (Coumadin) 5 mg PO TuThSa@1400 [facility] Last Admin: 06/29/17 22:34 Dose: 5 mg Warfarin Sodium (Coumadin) 2 mg PO TuThSa@1400 [facility] Last Admin: 06/29/17 22:34 Dose: 2 mg Zolpidem Tartrate (Ambien) 5 mg PO BEDTIME PRN PRN Reason: Sleep Discontinued Medications Sodium Chloride (Normal Saline) 1,000 mls @ 500 mls/hr IV .BOLUS ONE Stop: 06/29/17 21:51 Last Infusion: 06/29/17 22:41 Dose: Infused Non-Formulary Medication (Ezetimibe/Simvastatin [Vytorin 10-40 Mg Tablet]) 1 tab PO BEDTIME [facility] - Exam General: Alert, Oriented Neck: Supple Lungs: Clear to Auscultation, Normal Respiratory Effort Cardiovascular: Irregular Rhythm GI/Abdominal Exam: Normal Bowel Sounds, Soft, Non-Tender Extremities: Pedal Edema Skin: Warm, Other (Right lower extremity redness, no drainage) Neurological: No New Focal Deficit - Problem List & Annotations (1) Cellulitis SNOMED Code(s): 112005346 Code(s): L03.90 - CELLULITIS, UNSPECIFIED Status: Acute Current Visit: Yes Qualifiers: Site of cellulitis: extremity Site of cellulitis of extremity: lower extremity Laterality: right Qualified Code(s): L03.115 - Cellulitis of right lower limb - Problem List Review Problem List Initiated/Reviewed/Updated: Yes - My Orders Last 24 Hours: My Active Orders 06/29/17 21:27 CULTURE WOUND [RM] Routine 06/29/17 21:30 Metoprolol Succinate [Toprol XL] 100 mg PO BEDTIME Verapamil [Calan SR] 120 mg PO BEDTIME Warfarin Pharmacy to Dose [Pharmacy to Dose - Warfarin] 1 dose .XX ASDIRECTED 06/29/17 22:00 Ezetimibe [Zetia] 10 mg PO BEDTIME Niacin [Niaspan] 750 mg PO BEDTIME Simvastatin [Zocor] 40 mg PO BEDTIME Warfarin [Coumadin] 2 mg PO TuThSa@1400 Warfarin [Coumadin] 5 mg PO TuThSa@1400 06/30/17 08:00 Insulin Aspart [NovoLOG] See Protocol SUBCUT TIDAC Potassium Chloride [Klor-Con 10] 20 meq PO WITHBREAKFAST 06/30/17 08:30 Tamsulosin [Flomax] 0.4 mg PO BIDPC 06/30/17 09:00 Allopurinol [Zyloprim] 200 mg PO DAILY Aspirin [Halfprin] 81 mg PO DAILY Furosemide [Lasix] 20 mg PO DAILY Gabapentin [Neurontin] 600 mg PO BID Glimepiride [Amaryl] 6 mg PO BID Isosorbide Mononitrate [Imdur] 30 mg PO DAILY Magnesium Oxide 250 mg PO DAILY 06/30/17 14:00 Warfarin [Coumadin] 6 mg PO SuMoWeFr@1400 06/30/17 21:00 Primidone [Mysoline] 50 mg PO BEDTIME - Plan Plan:: The patient is a 66-year-old gentleman with a history of chronic swelling, diabetes, chronic kidney disease, coronary artery disease, neuropathy. #1 right leg cellulitis Presented with swelling, redness, warmth, tenderness blood culture: Pending wound culture: Currently no open wound Started the patient on cefazolin Use compression stocking to help with the edema #2 atrial fibrillation Appears to have controlled ventricular rate Continue Coumadin for stroke prophylaxis and DVT prophylaxis #3 coronary artery disease Continue to treat with metoprolol #4 diabetes complicated with neuropathy Continue home medications Monitor blood sugar, use supplemental insulin as needed. #5 neuropathy Continue home medications Compression stocking
[2017-06-30] MEDS ORDERED: Warfarin 2 MG Tab PO SCH (14:00)
[2017-06-30] MEDS ORDERED: Primidone 50 MG Tab PO SCH (21:00)
[2017-06-30] MEDS ORDERED: SIMVASTATIN PO SCH (21:00)
[2017-06-30] MEDS ORDERED: EZETIMIBE PO SCH (21:00)
[2017-06-30] MEDS: Niacin 500 MG Tab.ER PO SCH (21:12)
[2017-06-30] MEDS: Ezetimibe 10 MG Tab PO SCH (21:13)
[2017-06-30] MEDS: Metoprolol Succinate 50 MG Tab.ER PO SCH (21:14)
[2017-06-30] MEDS: Simvastatin 40 MG Tab PO SCH (21:14)
[2017-06-30] MEDS: Verapamil 240 MG Tab.ER PO SCH (21:19)
[2017-07-01] MEDS: Sodium Chloride 0.9% 10 ML Syringe FLUSH PRN ×2 (05:29→06:05)
[2017-07-01] MEDS: ceFAZolin 1 GM in Premix Bag 1 BAG IV SCH (05:30)
[2017-07-01] MEDS: Insulin Aspart 100 Units/ML 3 ML Pen SUBCUT SCH ×2 (08:23→12:36)
[2017-07-01] MEDS: Tamsulosin 0.4 MG Cap.ER PO SCH (08:59)
[2017-07-01] MEDS: Potassium Chloride 10 MEQ Tab.ER PO SCH (09:01)
[2017-07-01] MEDS: Gabapentin 300 MG Cap PO SCH (09:01)
[2017-07-01] MEDS: Aspirin 81 MG Tab.EC PO SCH (09:02)
[2017-07-01] MEDS: Allopurinol 100 MG Tab PO SCH (09:02)
[2017-07-01] MEDS: Furosemide 20 MG Tab PO SCH (09:02)
[2017-07-01] MEDS: Glimepiride 2 MG Tab PO SCH (09:02)
[2017-07-01] MEDS: Isosorbide Mononitrate 30 MG Tab.ER PO SCH (09:07)
--- NOTE | 2017-07-01 09:42 | PCM.DCSUM1 ---
Discharge Summary - Hospital Course Free Text/Narrative:: The patient is a 66-year-old gentleman with a history of chronic swelling, diabetes, chronic kidney disease, coronary artery disease, neuropathy. #1 right leg cellulitis Presented with swelling, redness, warmth, tenderness blood culture: negative wound culture: Currently no open wound Started the patient on cefazolin will finish treatment with keflex Use compression stocking and Lasix to help with the edema #2 atrial fibrillation Appears to have controlled ventricular rate Continue Coumadin for stroke prophylaxis and DVT prophylaxis #3 coronary artery disease Continue to treat with metoprolol - Discharge Data Discharge Date: 07/01/17 Discharge Disposition: Home, Self-Care 01 Condition: Good - Discharge Diagnosis/Problem(s) (1) Cellulitis SNOMED Code(s): 335048300 ICD Code: L03.90 - CELLULITIS, UNSPECIFIED Status: Acute Current Visit: Yes Qualifiers: Site of cellulitis: extremity Site of cellulitis of extremity: lower extremity Laterality: right Qualified Code(s): L03.115 - Cellulitis of right lower limb - Patient Instructions Diet: Heart Healthy Diet Activity: As Tolerated - Discharge Plan Prescriptions/Med Rec: Cephalexin [Keflex] 500 mg PO TID #30 cap Furosemide [Lasix] 20 mg PO DAILY #30 tablet Potassium Chloride [Klor-Con 10] 20 meq PO WITHBREAKFAST 30 Days tab.er Home Medications: Home Meds Allopurinol [Zyloprim] 2 tab PO DAILY 11/05/13 [History] Aspirin [Ecotrin] 1 tab PO DAILY 11/05/13 [History] Cholecalciferol (Vitamin D3) [Vitamin D3] 1 cap PO DAILY 11/05/13 [History] Ezetimibe/Simvastatin [Vytorin 10-40 mg Tablet] 1 tab PO BEDTIME 11/05/13 [ History] Gabapentin [Neurontin] 600 mg PO BID 11/05/13 [History] Glimepiride [Amaryl] 6 mg PO BID 11/05/13 [History] Isosorbide Mononitrate [Imdur] 30 mg PO DAILY 11/05/13 [History] Canagliflozin [Invokana] 100 mg PO DAILY 11/28/14 [History] Cetirizine [ZyrTEC] 10 mg PO DAILY 06/29/17 [History] Liraglutide [Victoza] 1.8 mg SUBCUT DAILY 06/29/17 [History] Magnesium 250 mg PO DAILY 06/29/17 [History] Metoprolol Succinate 100 mg PO QPM 06/29/17 [History] Niacin [Niacin ER] 750 mg PO QPM 06/29/17 [History] Primidone [Mysoline] 50 mg PO BEDTIME 06/29/17 [History] Tamsulosin [Flomax] 0.4 mg PO BIDPC 06/29/17 [History] Verapamil HCl [Verapamil ER] 120 mg PO QPM 06/29/17 [History] Warfarin Sodium [Jantoven] 1 tab PO DAILY 06/29/17 [History] rOPINIRole [Requip] 1 mg PO BEDTIME 06/29/17 [History] Cephalexin [Keflex] 500 mg PO TID #30 cap 07/01/17 [Rx] Furosemide [Lasix] 20 mg PO DAILY #30 tablet 07/01/17 [Rx] Potassium Chloride [Klor-Con 10] 20 meq PO WITHBREAKFAST 30 Days tab.er [Rx] Referrals: Maria Luisa Nunez MD [Physician] - (in 2-3 days) - Discharge Summary/Plan Comment DC Time >30 min.: No - General Info Date of Service: 07/01/17 Admission Dx/Problem (Free Text: Admission Diagnosis/Problem Admission Diagnosis/Problem Cellulitis Subjective Update: Had no fever overnight. The right lower extremity redness turning to a darker more brown discoloration No associated chills No shortness of breath, abdominal pain, headache. - Review of Systems General: Denies: Fever Pulmonary: Denies: Shortness of Breath Cardiovascular: Denies: Chest Pain Gastrointestinal: Denies: Abdominal Pain - Patient Data Vitals - Most Recent: Last Vital Signs Temp 36.6 C 07/01/17 07:00 Pulse 80 07/01/17 07:00 Resp 18 07/01/17 07:00 BP 107/57 L 07/01/17 09:07 Pulse Ox 97 07/01/17 07:00 Weight - Most Recent: 117.934 kg I&O - Last 24 hours: Intake & Output 06/30/17 07/01/17 07/01/17 22:59 06:59 14:59 Intake Total 630 250 Balance 630 250 Lab Results - Last 24 hrs: Laboratory Results - last 24 hr 06/30/17 06/30/17 06/30/17 Range/Units 10:57 16:56 20:49 WBC (5.0-10.0) 10^3/uL RBC (4.6-6.2) 10^6/uL Hgb (14.0-18.0) g/dL Hct (40.0-54.0) % MCV (80-100) fL MCH (27.0-34.0) pg MCHC (33.0-35.0) g/dL Plt Count (150-450) 10^3/uL Neut % (Auto) (42.2-75.2) % Lymph % (Auto) (20.5-50.1) % [place] % (Auto) (2-8) % Eos % (Auto) (1.0-3.0) % Baso % (Auto) (0.0-1.0) % PT (9.0-12.0) SEC INR (0.9-1.2) Sodium (135-145) mmol/L Potassium (3.6-5.0) mmol/L Chloride (101-111) mmol/L Carbon Dioxide (21.0-31.0) mmol/L Anion Gap BUN (7-18) mg/dL Creatinine (0.6-1.3) mg/dL Est Cr Clr Drug Dosing mL/min Estimated GFR (MDRD) Glucose (74-105) mg/dL POC Glucose 214 H 170 H 155 H (70-105) mg/dl Calcium (8.4-10.2) mg/dl 07/01/17 07/01/17 07/01/17 Range/Units 02:32 06:05 06:05 WBC 8.9 (5.0-10.0) 10^3/uL RBC 4.24 L (4.6-6.2) 10^6/uL Hgb 14.5 (14.0-18.0) g/dL Hct 41.7 (40.0-54.0) % MCV 98.3 (80-100) fL MCH 34.2 H (27.0-34.0) pg MCHC 34.8 (33.0-35.0) g/dL Plt Count 160 (150-450) 10^3/uL Neut % (Auto) 62.9 (42.2-75.2) % Lymph % (Auto) 24.0 (20.5-50.1) % [place] % (Auto) 10.8 H (2-8) % Eos % (Auto) 2.1 (1.0-3.0) % Baso % (Auto) 0.2 (0.0-1.0) % PT 22.5 H (9.0-12.0) SEC INR 2.2 H (0.9-1.2) Sodium (135-145) mmol/L Potassium (3.6-5.0) mmol/L Chloride (101-111) mmol/L Carbon Dioxide (21.0-31.0) mmol/L Anion Gap BUN (7-18) mg/dL Creatinine (0.6-1.3) mg/dL Est Cr Clr Drug Dosing mL/min Estimated GFR (MDRD) Glucose (74-105) mg/dL POC Glucose 112 H (70-105) mg/dl Calcium (8.4-10.2) mg/dl 07/01/17 07/01/17 Range/Units 06:05 07:54 WBC (5.0-10.0) 10^3/uL RBC (4.6-6.2) 10^6/uL Hgb (14.0-18.0) g/dL Hct (40.0-54.0) % MCV (80-100) fL MCH (27.0-34.0) pg MCHC (33.0-35.0) g/dL Plt Count (150-450) 10^3/uL Neut % (Auto) (42.2-75.2) % Lymph % (Auto) (20.5-50.1) % [place] % (Auto) (2-8) % Eos % (Auto) (1.0-3.0) % Baso % (Auto) (0.0-1.0) % PT (9.0-12.0) SEC INR (0.9-1.2) Sodium 136 (135-145) mmol/L Potassium 4.3 (3.6-5.0) mmol/L Chloride 98 L (101-111) mmol/L Carbon Dioxide 29.0 (21.0-31.0) mmol/L Anion Gap 13.3 BUN 24 H (7-18) mg/dL Creatinine 1.5 H (0.6-1.3) mg/dL Est Cr Clr Drug Dosing 54.80 mL/min Estimated GFR (MDRD) 47 Glucose 153 H (74-105) mg/dL POC Glucose 138 H (70-105) mg/dl Calcium 9.1 (8.4-10.2) mg/dl Med Orders - Current: Current Medications Acetaminophen (Tylenol) 650 mg PO Q4H PRN PRN Reason: Pain (Mild 1-3)/fever Allopurinol (Zyloprim) 200 mg PO DAILY [facility] Last Admin: 07/01/17 09:02 Dose: 200 mg Aspirin (Halfprin) 81 mg PO DAILY [facility] Last Admin: 07/01/17 09:02 Dose: 81 mg Ezetimibe (Zetia) 10 mg PO BEDTIME [facility] Last Admin: 06/30/17 21:13 Dose: 10 mg Furosemide (Lasix) 20 mg PO DAILY [facility] Last Admin: 07/01/17 09:02 Dose: 20 mg Gabapentin (Neurontin) 600 mg PO BID [facility] Last Admin: 07/01/17 09:01 Dose: 600 mg Glimepiride (Amaryl) 6 mg PO BID [facility] Last Admin: 07/01/17 09:02 Dose: 6 mg Cefazolin Sodium/Dextrose 1 gm (/ Premix) 50 mls @ 100 mls/hr IV Q8HR [facility] Last Admin: 07/01/17 05:30 Dose: 100 mls/hr Insulin Aspart (Novolog) 0 unit SUBCUT TIDAC [facility] PRN Reason: Protocol Last Admin: 07/01/17 08:23 Dose: Not Given Isosorbide Mononitrate (Imdur) 30 mg PO DAILY [facility] Last Admin: 07/01/17 09:07 Dose: 30 mg Magnesium Oxide (Magnesium Oxide) 250 mg PO DAILY [facility] Last Admin: 07/01/17 09:01 Dose: 250 mg Metoprolol Succinate (Toprol Xl) 100 mg PO BEDTIME [facility] Last Admin: 06/30/17 21:14 Dose: 100 mg Niacin (Niaspan) 750 mg PO BEDTIME [facility] Last Admin: 06/30/17 21:12 Dose: 750 mg Oxycodone HCl (Oxycodone) 5 mg PO Q4H PRN PRN Reason: Pain (moderate 4-6) Potassium Chloride (Klor-Con 10) 20 meq PO WITHBREAKFAST [facility] Last Admin: 07/01/17 09:01 Dose: 20 meq Primidone (Mysoline) 50 mg PO BEDTIME [facility] Last Admin: 06/30/17 21:15 Dose: 50 mg Simvastatin (Zocor) 40 mg PO BEDTIME [facility] Last Admin: 06/30/17 21:14 Dose: 40 mg Sodium Chloride (Saline Flush) 10 ml FLUSH ASDIRECTED PRN PRN Reason: Keep Vein Open Last Admin: 07/01/17 06:05 Dose: 10 ml Tamsulosin HCl (Flomax) 0.4 mg PO BIDPC [facility] Last Admin: 07/01/17 08:59 Dose: 0.4 mg Verapamil HCl (Calan Sr) 120 mg PO BEDTIME [facility] Last Admin: 06/30/17 21:19 Dose: 120 mg Warfarin Sodium (Pharmacy To Dose - Warfarin) 1 dose .XX ASDIRECTED [facility] Warfarin Sodium (Coumadin) 6 mg PO SuMoWeFr@1400 [facility] Last Admin: 06/30/17 15:16 Dose: 6 mg Warfarin Sodium (Coumadin) 5 mg PO TuThSa@1400 [facility] Last Admin: 06/29/17 22:34 Dose: 5 mg Warfarin Sodium (Coumadin) 2 mg PO TuThSa@1400 [facility] Last Admin: 06/29/17 22:34 Dose: 2 mg Zolpidem Tartrate (Ambien) 5 mg PO BEDTIME PRN PRN Reason: Sleep Discontinued Medications Sodium Chloride (Normal Saline) 1,000 mls @ 500 mls/hr IV .BOLUS ONE Stop: 06/29/17 21:51 Last Infusion: 06/29/17 22:41 Dose: Infused Non-Formulary Medication (Ezetimibe/Simvastatin [Vytorin 10-40 Mg Tablet]) 1 tab PO BEDTIME [facility] - Exam General: Reports: Alert, Oriented Neck: Reports: Supple Lungs: Reports: Clear to Auscultation, Normal Respiratory Effort Cardiovascular: Reports: Irregular Rhythm GI/Abdominal Exam: Normal Bowel Sounds, Soft Extremities: No Pedal Edema Skin: Reports: Other (Right lower extremity with an area of brownish dark discoloration, no significant redness) Neurological: Reports: No New Focal Deficit *Q Meaningful Use (DIS) - VTE *Q VTE Criteria *Q: - Stroke *Q Stroke Criteria *Q: - AMI *Q AMI Criteria *Q:
[2017-07-01 11:20] VITALS: BP 116/72
== END 2017-07-01 13:00 | disposition home or self-care (01) | DRG 603 ==
LOC: DL.ED 19:19 → DL.MS 21:02 → UNDOADMIN 21:02 → DL.MS 21:19
PROVIDERS: ADMIT Internal Medicine; ATTEND Internal Medicine
DX: L03.115 Cellulitis of right lower limb (principal); N18.9 Chronic kidney disease, unspecified; I25.10 Atherosclerotic heart disease of native coronary artery without angina pectoris; E11.42 Type 2 diabetes mellitus with diabetic polyneuropathy; I48.91 Unspecified atrial fibrillation; Z79.01 Long term (current) use of anticoagulants; Z79.4 Long term (current) use of insulin
CPT/HCPCS: 36415; 80053; 83605; 85025; 87040 ×2; 99284; J7030; 80048; 82962; 85610; A9270-GY; J0690; J1815-GY; J7050

== ENCOUNTER 2017-07-24 11:49 | Emergency (ER) | payer MEDICARE, BC ==
[2017-07-24 12:12] VITALS: BP 98/59
[2017-07-24 12:43] LABS: CHLORIDE,CL 97 mmol/L (101-111); SODIUM,NA 132 mmol/L (135-145)
--- NOTE | 2017-07-24 13:06 | EDM.PDOC ---
ED HPI GENERAL MEDICAL PROBLEM - General Chief Complaint: Cardiovascular Problem Time Seen by Provider: 07/24/17 12:20 Source of Information: Reports: Patient History Limitations: Reports: No Limitations - History of Present Illness INITIAL COMMENTS - FREE TEXT/NARRATIVE: This 66 yo male patient reports to the ED from Dr. Nunez's office due to hypotension. Dr. Nunez reported that the patient's blood pressure was 62/42 while in the Clinic. The patient reports he as been dealing with similar symptoms in the past. The patient reports he has been very tired which may be due to the surgery, the blood pressure medications and the pain medications. Onset: Today Duration: Intermittent Location: Reports: Generalized Quality: Reports: Other Severity: Moderate Improves with: Reports: None Worsens with: Reports: None Left Shoulder Pain Score (Numeric/FACES): 3 - Related Data Allergies Allergy/AdvReac Type Severity Reaction Status Date / Time environmental Allergy Mild Headache Uncoded 06/29/17 21:22 Home Meds: Home Meds Allopurinol [Zyloprim] 2 tab PO DAILY 11/05/13 [History] Aspirin [Ecotrin] 1 tab PO DAILY 11/05/13 [History] Ezetimibe/Simvastatin [Vytorin 10-40 mg Tablet] 1 tab PO BEDTIME 11/05/13 [ History] Gabapentin [Neurontin] 600 mg PO BID 11/05/13 [History] Glimepiride [Amaryl] 6 mg PO BID 11/05/13 [History] Isosorbide Mononitrate [Imdur] 30 mg PO DAILY 11/05/13 [History] Canagliflozin [Invokana] 100 mg PO DAILY 11/28/14 [History] Cetirizine [ZyrTEC] 10 mg PO DAILY 06/29/17 [History] Liraglutide [Victoza] 1.8 mg SUBCUT DAILY 06/29/17 [History] Magnesium 250 mg PO DAILY 06/29/17 [History] Metoprolol Succinate 100 mg PO QPM 06/29/17 [History] Niacin [Niacin ER] 750 mg PO QPM 06/29/17 [History] Primidone [Mysoline] 50 mg PO BEDTIME 06/29/17 [History] Tamsulosin [Flomax] 0.4 mg PO BIDPC 06/29/17 [History] Verapamil HCl [Verapamil ER] 120 mg PO QPM 06/29/17 [History] Warfarin Sodium [Jantoven] 1 tab PO DAILY 06/29/17 [History] rOPINIRole [Requip] 1 mg PO BEDTIME 06/29/17 [History] Furosemide [Lasix] 20 mg PO DAILY #30 tablet 07/01/17 [Rx] Potassium Chloride [Klor-Con 10] 20 meq PO WITHBREAKFAST 30 Days tab.er [Rx] oxyCODONE 5 mg PO Q6H PRN 07/24/17 [History] traMADol HCl [Tramadol HCl] 100 mg PO PRN 07/24/17 [History] Past Medical History HEENT History: Reports: Allergic Rhinitis, Hard of Hearing, Sinusitis, Other ( See Below) Other HEENT History: deviated septum Cardiovascular History: Reports: Afib, CAD, High Cholesterol, Stents Other Cardiovascular History: anticoagulant use Respiratory History: Reports: Sleep Apnea Gastrointestinal History: Reports: None Genitourinary History: Reports: BPH, Renal Disease, Retention, Urinary Other Genitourinary History: renal cyst, ED, frequency Musculoskeletal History: Reports: Arthritis Neurological History: Reports: Neuropathy, Diabetic Psychiatric History: Reports: None Endocrine/Metabolic History: Reports: Diabetes, Type II 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 Immunologic History: Reports: None Oncologic (Cancer) History: Reports: None Other Oncologic History: skin cancer Dermatologic History: Reports: Other (See Below) Other Dermatologic History: actinic keratosis, BCC, - Infectious Disease History Infectious Disease History: Reports: Chicken Pox - Past Surgical History Cardiovascular Surgical History: Reports: Coronary Artery Stent GI Surgical History: Reports: Colonoscopy Musculoskeletal Surgical History: Reports: Carpal Tunnel, Shoulder Surgery Social & Family History - Family History Family Medical History: Noncontributory Cardiac: Reports: Heart Failure, Other (See Below) Other Cardiac Family History: "son had a hole in his heart" Musculoskeletal: Reports: Arthritis Hematologic: Reports: Other (See Below) Other Hematologic Family History: pernicious anemia Other Oncologic Family History: uncle had cancer. unable to recall which type - Tobacco Use Smoking Status *Q: Never Smoker Second Hand Smoke Exposure: No - Caffeine Use Caffeine Use: Reports: Coffee - Alcohol Use Days Per Week of Alcohol Use: 0 - Recreational Drug Use Recreational Drug Use: No ED ROS GENERAL - Review of Systems Review Of Systems: ROS reveals no pertinent complaints other than HPI. ED EXAM, GENERAL - Physical Exam Exam: See Below Exam Limited By: No Limitations General Appearance: Alert, WD/WN, No Apparent Distress Eye Exam: Bilateral Eye: EOMI, Normal Inspection, PERRL Ears: Normal External Exam, Normal Canal, Hearing Grossly Normal, Normal TMs Nose: Normal Inspection, Normal Mucosa, No Blood Throat/Mouth: Normal Inspection, Normal Lips, Normal Teeth, Normal Gums, Normal Oropharynx, Normal Voice, No Airway Compromise Head: Atraumatic, Normocephalic Neck: Normal Inspection, Supple, Non-Tender, Full Range of Motion Respiratory/Chest: No Respiratory Distress, Lungs Clear, Normal Breath Sounds, No Accessory Muscle Use, Chest Non-Tender Cardiovascular: Irregularly Irregular GI/Abdominal: Normal Bowel Sounds, Soft, Non-Tender, No Organomegaly, No Distention, No Abnormal Bruit, No Mass (Male) Exam: Deferred Rectal (Males) Exam: Deferred Back Exam: Normal Inspection, Full Range of Motion, NT Extremities: Pedal Edema (mild) Neurological: Alert, Oriented, CN II-XII Intact, Normal Cognition, Normal Gait, Normal Reflexes, No Motor/Sensory Deficits Psychiatric: Normal Affect, Normal Mood Skin Exam: Other (The patient has bruising from left shoulder surgery on his left shoulder, left chest and left upper abdomen) Lymphatic: No Adenopathy Course - Vital Signs Last Recorded V/S: Last Vital Signs Temp 36.4 C 07/24/17 12:08 Pulse 86 07/24/17 12:08 Resp 20 07/24/17 12:08 BP 98/59 L 07/24/17 12:08 Pulse Ox 93 L 07/24/17 12:08 Orthostatic Blood Pressure [ 94/55 Standing] Orthostatic Blood Pressure [ 92/66 Sitting] Orthostatic Blood Pressure [ 98/66 Supine] - Orders/Labs/Meds Orders: Active Orders 24 hr Category Date Time Status EKG Documentation Completion [RC] URGENT Care 07/24/17 11:57 Active UA W/MICROSCOPIC [URIN] Stat Lab 07/24/17 11:57 Uncollected Labs: Laboratory Tests 07/24/17 07/24/17 07/24/17 Range/Units 12:03 12:03 12:03 WBC 8.7 (5.0-10.0) 10^3/uL RBC 3.48 L (4.6-6.2) 10^6/uL Hgb 11.7 L D (14.0-18.0) g/dL Hct 35.7 L (40.0-54.0) % MCV 102.6 H D (80-100) fL MCH 33.6 (27.0-34.0) pg MCHC 32.8 L (33.0-35.0) g/dL Plt Count 166 (150-450) 10^3/uL Neut % (Auto) 64.5 (42.2-75.2) % Lymph % (Auto) 15.6 L (20.5-50.1) % [place] % (Auto) 15.9 H (2-8) % Eos % (Auto) 3.5 H (1.0-3.0) % Baso % (Auto) 0.5 (0.0-1.0) % PT 15.5 H D (9.0-12.0) SEC INR 1.5 H (0.9-1.2) Sodium 132 L (135-145) mmol/L Potassium 4.6 (3.6-5.0) mmol/L Chloride 97 L (101-111) mmol/L Carbon Dioxide 28.0 (21.0-31.0) mmol/L Anion Gap 11.6 BUN 32 H (7-18) mg/dL Creatinine 1.4 H (0.6-1.3) mg/dL Est Cr Clr Drug Dosing 58.71 mL/min Estimated GFR (MDRD) 50 BUN/Creatinine Ratio 22.85 Glucose 194 H (74-105) mg/dL Calcium 9.3 (8.4-10.2) mg/dl Total Bilirubin 1.2 H (0.2-1.0) mg/dL AST 37 (10-42) IU/L ALT 22 (10-60) IU/L Alkaline Phosphatase 143 H (42-121) IU/L Troponin I < 0.02 (0.00-0.02) ng/ml Total Protein 7.3 (6.7-8.2) g/dl Albumin 3.4 (3.2-5.5) g/dl Globulin 3.9 Albumin/Globulin Ratio 0.87 Departure - Departure Time of Disposition: 13:09 Disposition: Home, Self-Care 01 Condition: Fair Clinical Impression: Hypotension due to medication A-fib Qualifiers: Atrial fibrillation type: chronic Qualified Code(s): I48.2 - Chronic atrial fibrillation Instructions: Hypotension, [id number] Care Plan Goals: The patient was advised of the examination, EKG and lab results during the visit. The patient was encouraged to continue to take his medications as prescribed. 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 If the patient has any additional symptoms or concerns, the patient should visit his primary care facility or return to the emergency department. - My Orders Last 24 Hours: My Active Orders 07/24/17 11:57 EKG Documentation Completion [RC] URGENT UA W/MICROSCOPIC [URIN] Stat - Assessment/Plan Last 24 Hours: My Active Orders 07/24/17 11:57 EKG Documentation Completion [RC] URGENT UA W/MICROSCOPIC [URIN] Stat
--- NOTE | 2017-07-31 13:08 | EKG ---
07/24/2017 - ARIC PHILLIPS - FINDINGS: I reviewed the EKG and agree with the machine's reading. [facility] /[id number]
== END 2017-07-24 13:17 | disposition home or self-care (01) ==
LOC: DL.ED 11:49
DX: I95.2 Hypotension due to drugs (principal); I48.2 Chronic atrial fibrillation; S40.012A Contusion of left shoulder, initial encounter; S20.212A Contusion of left front wall of thorax, initial encounter; S30.1XXA Contusion of abdominal wall, initial encounter; Z79.01 Long term (current) use of anticoagulants; E11.40 Type 2 diabetes mellitus with diabetic neuropathy, unspecified; E78.00 Pure hypercholesterolemia, unspecified; Z79.82 Long term (current) use of aspirin; Z79.899 Other long term (current) drug therapy; Z98.890 Other specified postprocedural states; X58.XXXA Exposure to other specified factors, initial encounter
CPT/HCPCS: 36415; 80053; 84484; 85025; 85610; 93005; 93010; 99285

== ENCOUNTER 2017-10-06 20:58 | Emergency (ER) | payer MEDICARE, BC ==
[2017-10-06] MEDS ORDERED: Metoprolol Succinate 25 MG Tab.ER PO ONE ×2 (20:59→23:44)
--- NOTE | 2017-10-06 21:26 | EDM.PDOC ---
ED HPI GENERAL MEDICAL PROBLEM - General Chief Complaint: Chest Pain Stated Complaint: [id number] CHEST PAINS Time Seen by Provider: 10/06/17 20:58 Source of Information: Reports: Patient History Limitations: Reports: No Limitations - History of Present Illness INITIAL COMMENTS - FREE TEXT/NARRATIVE: patient comes emergency department today with complaints of a funny sensation in his chest. He relates most the day he has had an odd sensation in his chest and a questionable pain in his chest. He is really unable to describe the pain to me. Nothing makes the pain worse or better. He does have a rather extensive history of atrial fibrillation and recently had a implantable loop recorder placed. On Saturday 2 days ago he spoke with his customer resource specialist and they started him on metoprolol 100 mg once a day as well as verapamil 120 mg which he was on previously. He was placed on these again because he was noticed to have atrial fibrillation with RVR earlier in the week. Since that time he has had that sensation in his chest. He does complain of some weakness and unsteadiness. No syncope. No palpitations but he typically does not have any palpitations when his heart rate goes fast. No fever no chills. No cough no congestion. No abdominal pain nausea or vomiting. No diaphoresis. No syncope. Chest Pain Score (Numeric/FACES): 2 - Related Data Allergies Allergy/AdvReac Type Severity Reaction Status Date / Time environmental Allergy Mild Headache Uncoded 06/29/17 21:22 Home Meds: Home Meds Allopurinol [Zyloprim] 2 tab PO DAILY 11/05/13 [History] Aspirin [Ecotrin] 1 tab PO DAILY 11/05/13 [History] Ezetimibe/Simvastatin [Vytorin 10-40 mg Tablet] 1 tab PO BEDTIME 11/05/13 [ History] Gabapentin [Neurontin] 600 mg PO BID 11/05/13 [History] Glimepiride [Amaryl] 6 mg PO BID 11/05/13 [History] Isosorbide Mononitrate [Imdur] 30 mg PO DAILY 11/05/13 [History] Canagliflozin [Invokana] 100 mg PO DAILY 11/28/14 [History] Cetirizine [ZyrTEC] 10 mg PO DAILY 06/29/17 [History] Liraglutide [Victoza] 1.8 mg SUBCUT DAILY 06/29/17 [History] Magnesium 250 mg PO DAILY 06/29/17 [History] Metoprolol Succinate 100 mg PO QPM 06/29/17 [History] Niacin [Niacin ER] 750 mg PO QPM 06/29/17 [History] Primidone [Mysoline] 50 mg PO BEDTIME 06/29/17 [History] Tamsulosin [Flomax] 0.4 mg PO BIDPC 06/29/17 [History] Verapamil HCl [Verapamil ER] 120 mg PO QPM 06/29/17 [History] Warfarin Sodium [Jantoven] 1 tab PO DAILY 06/29/17 [History] rOPINIRole [Requip] 1 mg PO BEDTIME 06/29/17 [History] Furosemide [Lasix] 20 mg PO DAILY #30 tablet 07/01/17 [Rx] Potassium Chloride [Klor-Con 10] 20 meq PO WITHBREAKFAST 30 Days tab.er [Rx] traMADol HCl [Tramadol HCl] 100 mg PO PRN 07/24/17 [History] Past Medical History HEENT History: Reports: Allergic Rhinitis, Hard of Hearing, Sinusitis, Other ( See Below) Other HEENT History: deviated septum Cardiovascular History: Reports: Afib, CAD, High Cholesterol, Stents Other Cardiovascular History: anticoagulant use Respiratory History: Reports: Sleep Apnea Gastrointestinal History: Reports: None Genitourinary History: Reports: BPH, Renal Disease, Retention, Urinary Other Genitourinary History: renal cyst, ED, frequency Musculoskeletal History: Reports: Arthritis Neurological History: Reports: Neuropathy, Diabetic Psychiatric History: Reports: None Endocrine/Metabolic History: Reports: Diabetes, Type II 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 Immunologic History: Reports: None Oncologic (Cancer) History: Reports: None Other Oncologic History: skin cancer Dermatologic History: Reports: Other (See Below) Other Dermatologic History: actinic keratosis, BCC, - Infectious Disease History Infectious Disease History: Reports: Chicken Pox - Past Surgical History Cardiovascular Surgical History: Reports: Coronary Artery Stent, Other (See Below) Other Cardiovascular Surgeries/Procedures: loop recorder 2 weeks ago GI Surgical History: Reports: Colonoscopy Musculoskeletal Surgical History: Reports: Carpal Tunnel Social & Family History - Family History Family Medical History: Noncontributory Cardiac: Reports: Heart Failure, Other (See Below) Other Cardiac Family History: "son had a hole in his heart" Musculoskeletal: Reports: Arthritis Hematologic: Reports: Other (See Below) Other Hematologic Family History: pernicious anemia Other Oncologic Family History: uncle had cancer. unable to recall which type - Tobacco Use Smoking Status *Q: Never Smoker Second Hand Smoke Exposure: No - Caffeine Use Caffeine Use: Reports: None - Alcohol Use Days Per Week of Alcohol Use: 0 - Recreational Drug Use Recreational Drug Use: No ED ROS GENERAL - Review of Systems Review Of Systems: ROS reveals no pertinent complaints other than HPI. ED EXAM, GENERAL - Physical Exam Exam: See Below Free Text/Narrative:: his initial blood pressure is in the upper 70s and improves to the 120s systolically when he lays flat. His color also improves after he lays flat. Exam Limited By: No Limitations General Appearance: Alert, WD/WN, No Apparent Distress Eye Exam: Bilateral Eye: EOMI, Normal Inspection Ears: Normal External Exam, Normal Canal Nose: Normal Inspection, Normal Mucosa Throat/Mouth: Normal Inspection, Normal Lips, Normal Oropharynx Head: Atraumatic, Normocephalic Neck: Normal Inspection, Supple Respiratory/Chest: No Respiratory Distress, Lungs Clear, Normal Breath Sounds, No Accessory Muscle Use Cardiovascular: Normal Peripheral Pulses, Irregularly Irregular Peripheral Pulses: 2+: Radial (L), Radial (R), Posterior Tibial (L), Posterior Tibial (R), Dorsalis Pedis (L), Dorsalis Pedis (R) GI/Abdominal: Normal Bowel Sounds, Soft, Non-Tender, No Distention (Male) Exam: Deferred Rectal (Males) Exam: Deferred Back Exam: Normal Inspection, Full Range of Motion Extremities: Normal Inspection, Non-Tender, Normal Capillary Refill, Pedal Edema (scant pretibial edema bilaterally no more than normal he relates.) Neurological: Alert, Oriented, CN II-XII Intact, Normal Reflexes Psychiatric: Normal Affect, Normal Mood Skin Exam: Warm, Dry, Intact, Pallor EKG INTERPRETATION EKG Date: 10/06/17 Time: 20:57 Rhythm: A-Fib Rate (Beats/Min): 69 Sheldon: Normal P-Wave: Absent QRS: Other (incomplete right bundle branch block.) ST-T: Normal QT: Normal Comparison: No Change Course - Vital Signs Last Recorded V/S: Last Vital Signs Temp 36.7 C 10/06/17 23:40 Pulse 72 10/06/17 23:40 Resp 20 10/06/17 23:40 BP 89/58 L 10/06/17 23:40 Pulse Ox 100 10/06/17 21:11 Orthostatic Blood Pressure [ 83/60 Standing] Orthostatic Blood Pressure [ 97/83 Sitting] Orthostatic Blood Pressure [ 91/62 Supine] Vital Signs 10/06/17 10/06/17 21:11 23:40 Temperature [ 36.1 C 36.7 C Temporal] Pulse, 67 72 Peripheral [ Pulse Oximetry] Respiratory 18 20 Rate Blood Pressure 120/77 89/58 L [Right Arm] O2 Sat by Pulse 100 Oximetry Orthostatic Blood Pressure [ 83/60 Standing] Orthostatic Blood Pressure [ 97/83 Sitting] Orthostatic Blood Pressure [ 91/62 Supine] - Orders/Labs/Meds Orders: Active Orders 24 hr Category Date Time Status EKG 12 Lead [EKG Documentation Completion] [RC] URGENT Care 10/06/17 21:00 Active Orthostatic Vital Signs [RC] ASDIRECTED Care 10/06/17 22:45 Active Labs: Laboratory Tests 10/06/17 10/06/17 10/06/17 Range/Units 21:08 21:08 21:08 WBC 9.0 (5.0-10.0) 10^3/uL RBC 4.39 L (4.6-6.2) 10^6/uL Hgb 14.7 D (14.0-18.0) g/dL Hct 45.1 (40.0-54.0) % MCV 102.7 H (80-100) fL MCH 33.5 (27.0-34.0) pg MCHC 32.6 L (33.0-35.0) g/dL Plt Count 123 L (150-450) 10^3/uL Neut % (Auto) 48.1 (42.2-75.2) % Lymph % (Auto) 34.3 (20.5-50.1) % [place] % (Auto) 13.7 H (2-8) % Eos % (Auto) 3.2 H (1.0-3.0) % Baso % (Auto) 0.7 (0.0-1.0) % PT 26.4 H D (9.0-12.0) SEC INR 2.6 H (0.9-1.2) Sodium 132 L (135-145) mmol/L Potassium 5.0 (3.6-5.0) mmol/L Chloride 96 L (101-111) mmol/L Carbon Dioxide 26.0 (21.0-31.0) mmol/L Anion Gap 15.0 BUN 28 H (7-18) mg/dL Creatinine 1.7 H (0.6-1.3) mg/dL Est Cr Clr Drug Dosing TNP Estimated GFR (MDRD) 40 BUN/Creatinine Ratio 16.47 Glucose 234 H (74-105) mg/dL Calcium 9.7 (8.4-10.2) mg/dl Total Bilirubin 0.6 (0.2-1.0) mg/dL AST 48 H (10-42) IU/L ALT 27 (10-60) IU/L Alkaline Phosphatase 121 (42-121) IU/L CK-MB (CK-2) (0.4-4.7) ng/mL Troponin I < 0.02 (0.00-0.02) ng/ml B-Natriuretic Peptide (0-100) pg/ml Total Protein 7.5 (6.7-8.2) g/dl Albumin 3.9 (3.2-5.5) g/dl Globulin 3.6 Albumin/Globulin Ratio 1.08 18 10/06/17 Range/Units 21:08 21:08 WBC (5.0-10.0) 10^3/uL RBC (4.6-6.2) 10^6/uL Hgb (14.0-18.0) g/dL Hct (40.0-54.0) % MCV (80-100) fL MCH (27.0-34.0) pg MCHC (33.0-35.0) g/dL Plt Count (150-450) 10^3/uL Neut % (Auto) (42.2-75.2) % Lymph % (Auto) (20.5-50.1) % [place] % (Auto) (2-8) % Eos % (Auto) (1.0-3.0) % Baso % (Auto) (0.0-1.0) % PT (9.0-12.0) SEC INR (0.9-1.2) Sodium (135-145) mmol/L Potassium (3.6-5.0) mmol/L Chloride (101-111) mmol/L Carbon Dioxide (21.0-31.0) mmol/L Anion Gap BUN (7-18) mg/dL Creatinine (0.6-1.3) mg/dL Est Cr Clr Drug Dosing Estimated GFR (MDRD) BUN/Creatinine Ratio Glucose (74-105) mg/dL Calcium (8.4-10.2) mg/dl Total Bilirubin (0.2-1.0) mg/dL AST (10-42) IU/L ALT (10-60) IU/L Alkaline Phosphatase (42-121) IU/L CK-MB (CK-2) 1.80 (0.4-4.7) ng/mL Troponin I (0.00-0.02) ng/ml B-Natriuretic Peptide 202 H (0-100) pg/ml Total Protein (6.7-8.2) g/dl Albumin (3.2-5.5) g/dl Globulin Albumin/Globulin Ratio Meds: Medications Discontinued Medications Generic Name Dose Route Start Last Admin Trade Name Freq PRN Reason Stop Dose Admin Aspirin 324 mg 10/06/17 21:27 10/06/17 21:51 Aspirin PO 10/06/17 21:28 324 mg ONETIME ONE Administration Sodium Chloride 1,000 mls @ 999 mls/hr 10/06/17 22:00 10/06/17 21:53 Normal Saline IV 999 mls/hr ASDIRECTED SEB Administration Metoprolol Succinate 75 mg 10/06/17 23:44 10/07/17 00:05 Toprol Xl PO 10/06/17 23:45 Not Given ONETIME ONE - Radiology Interpretation Free Text/Narrative:: chest x-ray per radiology cardiomegaly mild interstitial edema. - Re-Assessments/Exams Free Text/Narrative Re-Assessment/Exam: 10/07/17 00:26 the patient's laboratory evaluation is rather unremarkable for any causes of his hypotension. He did get a small saline bolus which did improve his symptomatology. He was still somewhat orthostatic when he stood up. His symptoms did resolve when he was laying on the cot. His blood pressure was in the 110s to 120s. His heart rate was controlled in the 60s. I explained to the patient that this is most likely due to the rather aggressive on set of 2 new medications to include metoprolol 100 mg by mouth as well as verapamil 120 mg by mouth twice a day. I did offer admission for him tonight due to his hypotension for which she denied. I will have him hold his verapamil dose for tonight and will decrease his metoprolol dose somewhat to 75 mg for tonight as I do not feel that we should discontinue them both as he would run the risk of atrial fibrillation with RVR. He was comfortable with this plan and he already has a scheduled appoint with his customer resource specialist in the morning. again I did offer him admission for which he denied. I stated that he should not drive home and he should go home and sleep he was comfortable with this plan his questions were answered. Departure - Departure Time of Disposition: 23:50 Disposition: Home, Self-Care 01 Clinical Impression: Hypotension due to medication A-fib Qualifiers: Atrial fibrillation type: chronic Qualified Code(s): I48.2 - Chronic atrial fibrillation Referrals: Maria Luisa Nunez MD [Primary Care Provider] - Forms: ED Department Discharge Additional Instructions: DO NOT TAKE VERAPAMIL TONIGHT. Take your dose in the morning although. DO NOT TAKE YOUR METROPROLOL 100mg tonight. Take the 75 mg dispensed from the ED. Go home rest, do not drive, make position changes slowly. Follow up with cardiology tomorrow as planned. Return to the ED if new or worsening symptoms. - My Orders Last 24 Hours: My Active Orders 10/06/17 21:00 EKG 12 Lead [EKG Documentation Completion] [RC] URGENT 10/06/17 22:45 Orthostatic Vital Signs [RC] ASDIRECTED - Assessment/Plan Last 24 Hours: My Active Orders 10/06/17 21:00 EKG 12 Lead [EKG Documentation Completion] [RC] URGENT 10/06/17 22:45 Orthostatic Vital Signs [RC] ASDIRECTED Assessment:: Hypotension due to recent addition of 100mg metoprolol Suc qd and Verapamil 120mg bid. Refused admission. A-Fib controlled rate. INR therapeutic. Plan: DO NOT TAKE VERAPAMIL TONIGHT. Take your dose in the morning although. DO NOT TAKE YOUR METROPROLOL 100mg tonight. Take the 75 mg dispensed from the ED. Go home rest, do not drive, make position changes slowly. Follow up with cardiology tomorrow as planned. Return to the ED if new or worsening symptoms.
[2017-10-06] MEDS ORDERED: Aspirin 81 MG Tab.Chew PO ONE (21:27)
[2017-10-06 21:36] LABS: CHLORIDE,CL 96 mmol/L (101-111); SODIUM,NA 132 mmol/L (135-145)
[2017-10-06] MEDS ORDERED: Sodium Chloride 0.9% 1,000 ML IV SCH (22:00)
[2017-10-07 00:10] VITALS: BP 89/58
--- NOTE | 2017-10-09 13:34 | EKG ---
10/06/2017- ARIC PHILLIPS - FINDINGS: EKG per my reading shows atrial fibrillation with controlled ventricular rate and inferior Q-waves. [facility] /[id number]
== END 2017-10-07 00:05 | disposition home or self-care (01) ==
LOC: DL.ED 20:58
DX: I95.2 Hypotension due to drugs (principal); T46.1X5A Adverse effect of calcium-channel blockers, initial encounter; I48.2 Chronic atrial fibrillation; R06.02 Shortness of breath; E11.40 Type 2 diabetes mellitus with diabetic neuropathy, unspecified; E78.00 Pure hypercholesterolemia, unspecified; Z79.82 Long term (current) use of aspirin; Z79.899 Other long term (current) drug therapy; Z79.01 Long term (current) use of anticoagulants; Z91.09 Other allergy status, other than to drugs and biological substances
CPT/HCPCS: 36415; 71045; 80053; 82553; 83880; 84484; 85025; 85610; 93005; 93010; 96374; 99284; 99285; A9270; J7030

== ENCOUNTER 2019-08-27 08:24 | Emergency (ER) | payer MEDICARE, BC ==
[2019-08-27 08:57] VITALS: BP 100/70; PULSE 66
--- NOTE | 2019-08-27 08:57 | EDM.PDOC ---
ED HPI GENERAL MEDICAL PROBLEM - General Chief Complaint: Back Pain or Injury Stated Complaint: FELL LAST NIGHT HURT BACK Time Seen by Provider: 08/27/19 08:45 Source of Information: Reports: Patient History Limitations: Reports: No Limitations - History of Present Illness INITIAL COMMENTS - FREE TEXT/NARRATIVE: This 68 yo male patient reports to the ED with lower back pain and right forearm bleeding. The patient reports he tripped over his 's scooter last night as he was cleaning up after their dogs. The patient reports he must have gotten his foot caught on the scooter prior to tripping. The patient reports increased pain in his lower back more to the left side than right. The patient also has a laceration to his right elbow. The patient is on blood thinner causing increased bleeding. Onset Date: 08/27/19 Duration: Constant Location: Reports: Back, Upper Extremity, Right Quality: Reports: Ache, Dull Severity: Moderate Improves with: Reports: Rest Worsens with: Reports: Movement Context: Reports: Trauma (Ground level fall) Associated Symptoms: Reports: No Other Symptoms - Related Data Allergies Allergy/AdvReac Type Severity Reaction Status Date / Time environmental Allergy Mild Headache Uncoded 06/29/17 21:22 Home Meds: Home Meds Aspirin [Ecotrin EC] 1 tab PO DAILY 11/05/13 [History] Ezetimibe/Simvastatin [Vytorin 10-40 mg Tablet] 1 tab PO BEDTIME 11/05/13 [ History] Gabapentin [Neurontin] 600 mg PO BID 11/05/13 [History] Glimepiride [Amaryl] 6 mg PO BID 11/05/13 [History] Isosorbide Mononitrate [Imdur] 30 mg PO DAILY 11/05/13 [History] allopurinoL [Zyloprim] 2 tab PO DAILY 11/05/13 [History] Canagliflozin [Invokana] 100 mg PO DAILY 11/28/14 [History] Cetirizine [ZyrTEC] 10 mg PO DAILY 06/29/17 [History] Liraglutide [Victoza] 1.8 mg SUBCUT DAILY 06/29/17 [History] Magnesium 250 mg PO DAILY 06/29/17 [History] Metoprolol Succinate 100 mg PO QPM 06/29/17 [History] Niacin [Niacin ER] 750 mg PO QPM 06/29/17 [History] Primidone [Mysoline] 50 mg PO BEDTIME 06/29/17 [History] Tamsulosin [Flomax] 0.4 mg PO BIDPC 06/29/17 [History] Verapamil HCl [Verapamil ER] 120 mg PO QPM 06/29/17 [History] Warfarin Sodium [Jantoven] 1 tab PO DAILY 06/29/17 [History] rOPINIRole [Requip] 1 mg PO BEDTIME 06/29/17 [History] Furosemide [Lasix] 20 mg PO DAILY #30 tablet 07/01/17 [Rx] Potassium Chloride [Klor-Con 10] 20 meq PO WITHBREAKFAST 30 Days tab.er [Rx] traMADol HCl [Tramadol HCl] 100 mg PO PRN 07/24/17 [History] Past Medical History HEENT History: Reports: Allergic Rhinitis, Hard of Hearing, Sinusitis, Other ( See Below) Other HEENT History: deviated septum Cardiovascular History: Reports: Afib, CAD, High Cholesterol, Stents Other Cardiovascular History: anticoagulant use Respiratory History: Reports: Sleep Apnea Gastrointestinal History: Reports: None Genitourinary History: Reports: BPH, Renal Disease, Retention, Urinary Other Genitourinary History: renal cyst, ED, frequency Musculoskeletal History: Reports: Arthritis Neurological History: Reports: Neuropathy, Diabetic Psychiatric History: Reports: None Endocrine/Metabolic History: Reports: Diabetes, Type II 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 Immunologic History: Reports: None Oncologic (Cancer) History: Reports: None Other Oncologic History: skin cancer Dermatologic History: Reports: Other (See Below) Other Dermatologic History: actinic keratosis, BCC, - Infectious Disease History Infectious Disease History: Reports: Chicken Pox - Past Surgical History Cardiovascular Surgical History: Reports: Coronary Artery Stent, Other (See Below) Other Cardiovascular Surgeries/Procedures: loop recorder 2 weeks ago GI Surgical History: Reports: Colonoscopy Musculoskeletal Surgical History: Reports: Carpal Tunnel Social & Family History - Family History Family Medical History: Noncontributory Cardiac: Reports: Heart Failure, Other (See Below) Other Cardiac Family History: "son had a hole in his heart" Musculoskeletal: Reports: Arthritis Hematologic: Reports: Other (See Below) Other Hematologic Family History: pernicious anemia Other Oncologic Family History: uncle had cancer. unable to recall which type - Caffeine Use Caffeine Use: Reports: None ED ROS GENERAL - Review of Systems Review Of Systems: Comprehensive ROS is negative, except as noted in HPI. ED EXAM,LOWER BACK PAIN/INJURY - Physical Exam Exam: See Below Exam Limited By: No Limitations General Appearance: Alert, WD/WN, Moderate Distress Eye Exam: Bilateral Eye: EOMI, Normal Inspection, PERRL Ears: Normal External Exam, Normal Canal, Hearing Grossly Normal, Normal TMs Nose: Normal Inspection, Normal Mucosa, No Blood Throat/Mouth: Normal Inspection, Normal Lips, Normal Teeth, Normal Gums, Normal Oropharynx, Normal Voice, No Airway Compromise Head: Atraumatic, Normocephalic Neck: Normal Inspection, Supple, Non-Tender, Full Range of Motion Respiratory/Chest: No Respiratory Distress, Lungs Clear, Normal Breath Sounds, No Accessory Muscle Use, Chest Non-Tender Cardiovascular: Normal Peripheral Pulses, Regular Rate, Rhythm, No Edema, No Gallop, No JVD, No Murmur, No Rub GI/Abdominal: Normal Bowel Sounds, Soft, Non-Tender, No Organomegaly, No Distention, No Abnormal Bruit, No Mass (Male) Exam: Deferred Rectal (Males) Exam: Deferred Back Exam: Paraspinal Tenderness (left side), Vertebral Tenderness (lower back ) Extremities: Arm Pain (right elbow laceration with bruising to the right forearm ) Neurological: Alert, Normal Mood/Affect, Oriented x 3, Other (increased pain in the lower back when ambulating) Psychiatric: Normal Affect, Normal Mood Skin Exam: Wound/Incision (right elbow) Lymphatic: No Adenopathy ED LACERATION/WOUND PROCEDURES - Laceration/Wound Repair Right Posterior Arm Laceration/Wound Length In cm: 3 Appearance: Subcutaneous Distal NVT: Neuro & Vascular Intact Anesthetic Type: Local Local Anesthesia - Lidocaine (Xylocaine): 1% with EPI Local Anesthetic Volume: 2cc Skin Prep: Chlorhexidine (Hibiciens), Saline Wound Exploration, Debridement, Revision: Wound Explored, In a Bloodless Field, No Foreign Material Found Suture Size: 4-0 # of Sutures: 10 Suture Type: Prolene, Interrupted, Simple Drain Placement: No Sterile Dressing Applied: Nurse Tetanus Status Addressed: Yes Complications: None Course - Vital Signs Last Recorded V/S: Last Vital Signs Temp 36.7 C 08/27/19 08:55 Pulse 66 08/27/19 08:55 Resp 18 08/27/19 08:55 BP 100/70 01/16/20 08:55 Pulse Ox 99 08/27/19 08:55 - Orders/Labs/Meds Meds: Medications Discontinued Medications Generic Name Dose Route Start Last Admin Trade Name Brooke PRN Reason Stop Dose Admin Bacitracin 1 dose 08/27/19 09:27 Bacitracin Oint 1 Gm TOP 08/27/19 09:28 ONETIME ONE Lidocaine/Epinephrine 20 ml 08/27/19 08:58 Xylocaine 1% With Epinephrine 1:100,000 INJECT 08/27/19 08:59 ONETIME ONE Departure - Departure Time of Disposition: 10:06 Disposition: Home, Self-Care 01 Condition: Fair Clinical Impression: Fall from ground level Laceration of right upper arm Qualifiers: Encounter type: initial encounter Qualified Code(s): S41.111A - Laceration without foreign body of right upper arm, initial encounter Lumbar compression fracture Qualifiers: Encounter type: subsequent encounter Lumbar vertebra fracture level: unspecified lumbar vertebra Fracture healing: with routine healing Qualified Code(s): S32.000D - Wedge compression fracture of unspecified lumbar vertebra, subsequent encounter for fracture with routine healing Low back pain Qualifiers: Chronicity: acute Back pain laterality: right Sciatica presence: without sciatica Qualified Code(s): M54.5 - Low back pain - Discharge Information *PRESCRIPTION DRUG MONITORING PROGRAM REVIEWED*: Not Applicable *COPY OF PRESCRIPTION DRUG MONITORING REPORT IN PATIENT QUENTIN: Not Applicable Instructions: Stitches, [place], or Adhesive Wound Closure, [id number], Acute Back Pain, Adult Forms: ED Department Discharge Care Plan Goals: The patient was advised of the examination and x-ray results during the visit. The laceration margins were well approximated during the visit. The patient should keep the area clean and dry over the next 24 hours. The patient should have the sutures removed in about 14 days. The patient was discharged with a script for Prednisone (20 mg) #10 to take 2 by mouth daily for 5 days for his lower back pain. If the patient has any additional symptoms or concerns, the patient should either return to the emergency department or follow-up with his primary care facility. Sepsis Event Note - Focused Exam Vital Signs: Vital Signs Temp Pulse Resp BP Pulse Ox 08/27/19 08:55 36.7 C 66 18 100/70 99 Date Exam was Performed: 08/27/19 Time Exam was Performed: 09:55
[2019-08-27] MEDS ORDERED: Lidocaine 1% with EPINEPHrine 1:100,000 20 ML MDV INJECT ONE (08:58)
[2019-08-27] MEDS ORDERED: Bacitracin Oint 1 GM U/D Packet TOP ONE (09:27)
== END 2019-08-27 10:30 | disposition home or self-care (01) ==
LOC: DL.ED 08:24
DX: S41.111A Laceration without foreign body of right upper arm, initial encounter (principal); M54.5 Low back pain; I25.10 Atherosclerotic heart disease of native coronary artery without angina pectoris; E11.9 Type 2 diabetes mellitus without complications; I48.91 Unspecified atrial fibrillation; E78.00 Pure hypercholesterolemia, unspecified; N40.1 Benign prostatic hyperplasia with lower urinary tract symptoms; R33.8 Other retention of urine; Z91.048 Other nonmedicinal substance allergy status; Z79.82 Long term (current) use of aspirin; Z79.899 Other long term (current) drug therapy; Z79.01 Long term (current) use of anticoagulants; W01.0XXA Fall on same level from slipping, tripping and stumbling without subsequent striking against object, initial encounter
CPT/HCPCS: 12002; 72100; 73090-RT; 99283; 99283-25

== ENCOUNTER 2019-09-11 10:28 | Emergency (ER) | payer MEDICARE, BC ==
--- NOTE | 2019-09-11 10:52 | EDM.PDOC ---
ED HPI GENERAL MEDICAL PROBLEM - General Chief Complaint: Upper Extremity Injury/Pain Stated Complaint: WRIST INJURY Time Seen by Provider: 09/11/19 10:52 Source of Information: Reports: Patient, Old Records, RN, RN Notes Reviewed History Limitations: Reports: No Limitations - History of Present Illness INITIAL COMMENTS - FREE TEXT/NARRATIVE: Pt presents to ER from home by POV with c/o pain to the left shoulder and left wrist. He states he is having back pain, but that is from a fall 2 weeks ago. Today about 30 mins. ICU MANAGER he state he slipped and fell on the ice injuring the left shoulder. He also has left wrist pain, which he isn't sure if he injured during the fall today or not because the wrist began hurting yesterday for no apparent reason. Pt states he fell 2 weeks ago and injured his back. He was seen in clinic for the back pain and states his x-rays showed old compression fractures, but nothing acute. He has been taking Oxycodone since the back injury 2 weeks ago, but tries to only take one or two per day. He has also been taking Flexeril. Pt denies hitting his head, LOC, or neck pain. Onset: Today, Sudden Onset Date: 09/11/19 Duration: Minutes: (30 ICU MANAGER) Location: Reports: Upper Extremity, Left Quality: Reports: Ache Severity: Severe Improves with: Reports: Immobilization Worsens with: Reports: Movement Associated Symptoms: Reports: No Other Symptoms Treatments ICU MANAGER: Reports: Other Medication(s) - Related Data Allergies Allergy/AdvReac Type Severity Reaction Status Date / Time environmental Allergy Mild Headache Uncoded 09/11/19 10:39 Home Meds: Home Meds Aspirin [Ecotrin EC] 1 tab PO DAILY 11/05/13 [History] Ezetimibe/Simvastatin [Vytorin 10-40 mg Tablet] 1 tab PO BEDTIME 11/05/13 [ History] Gabapentin [Neurontin] 600 mg PO BID 11/05/13 [History] Glimepiride [Amaryl] 6 mg PO BID 11/05/13 [History] Isosorbide Mononitrate [Imdur] 30 mg PO DAILY 11/05/13 [History] allopurinoL [Zyloprim] 2 tab PO DAILY 11/05/13 [History] Canagliflozin [Invokana] 100 mg PO DAILY 11/28/14 [History] Cetirizine [ZyrTEC] 10 mg PO DAILY 06/29/17 [History] Liraglutide [Victoza] 1.8 mg SUBCUT DAILY 06/29/17 [History] Magnesium 250 mg PO DAILY 06/29/17 [History] Metoprolol Succinate 100 mg PO QPM 06/29/17 [History] Niacin [Niacin ER] 750 mg PO QPM 06/29/17 [History] Primidone [Mysoline] 50 mg PO BEDTIME 06/29/17 [History] Tamsulosin [Flomax] 0.4 mg PO BIDPC 06/29/17 [History] Verapamil HCl [Verapamil ER] 120 mg PO QPM 06/29/17 [History] Warfarin Sodium [Jantoven] 1 tab PO DAILY 06/29/17 [History] rOPINIRole [Requip] 1 mg PO BEDTIME 06/29/17 [History] Furosemide [Lasix] 20 mg PO DAILY #30 tablet 07/01/17 [Rx] Potassium Chloride [Klor-Con 10] 20 meq PO WITHBREAKFAST 30 Days tab.er [Rx] Cyclobenzaprine [Flexeril] 5 mg PO TID PRN 09/11/19 [History] oxyCODONE HCl/Acetaminophen [Oxycodone-Acetaminophen 5-300] 1 tab PO Q8H PRN [History] Past Medical History HEENT History: Reports: Allergic Rhinitis, Hard of Hearing, Sinusitis, Other ( See Below) Other HEENT History: deviated septum Cardiovascular History: Reports: Afib, CAD, High Cholesterol, Stents Other Cardiovascular History: anticoagulant use Respiratory History: Reports: Sleep Apnea Gastrointestinal History: Reports: None Genitourinary History: Reports: BPH, Renal Disease, Retention, Urinary Other Genitourinary History: renal cyst, ED, frequency Musculoskeletal History: Reports: Arthritis Neurological History: Reports: Neuropathy, Diabetic Psychiatric History: Reports: None Endocrine/Metabolic History: Reports: Diabetes, Type II 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 Immunologic History: Reports: None Oncologic (Cancer) History: Reports: None Other Oncologic History: skin cancer Dermatologic History: Reports: Other (See Below) Other Dermatologic History: actinic keratosis, BCC, - Infectious Disease History Infectious Disease History: Reports: Chicken Pox - Past Surgical History Cardiovascular Surgical History: Reports: Coronary Artery Stent, Other (See Below) Other Cardiovascular Surgeries/Procedures: loop recorder 2 weeks ago GI Surgical History: Reports: Colonoscopy Musculoskeletal Surgical History: Reports: Carpal Tunnel Social & Family History - Family History Family Medical History: Noncontributory Cardiac: Reports: Heart Failure, Other (See Below) Other Cardiac Family History: "son had a hole in his heart" Musculoskeletal: Reports: Arthritis Hematologic: Reports: Other (See Below) Other Hematologic Family History: pernicious anemia Other Oncologic Family History: uncle had cancer. unable to recall which type - Caffeine Use Caffeine Use: Reports: None - Living Situation & Occupation Living situation: Reports: , with Spouse Occupation: Retired Review of Systems - Review of Systems Review Of Systems: Comprehensive ROS is negative, except as noted in HPI. ED EXAM, GENERAL - Physical Exam Exam: See Below Exam Limited By: No Limitations General Appearance: Alert, No Apparent Distress, Obese Eye Exam: Bilateral Eye: Normal Inspection Nose: Normal Inspection, No Blood Throat/Mouth: Normal Inspection, Normal Voice, No Airway Compromise Head: Atraumatic, Normocephalic Neck: Normal Inspection, Supple, Non-Tender, Full Range of Motion Respiratory/Chest: No Respiratory Distress, Lungs Clear, No Accessory Muscle Use , Chest Non-Tender, Decreased Breath Sounds Cardiovascular: Regular Rate, Rhythm Peripheral Pulses: 3+: Radial (L), Radial (R) GI/Abdominal: Normal Bowel Sounds, Soft, Other (Benign obese abdomen) Back Exam: Decreased Range of Motion, Paraspinal Tenderness. No: CVA Tenderness (L), CVA Tenderness (R), Vertebral Tenderness Extremities: Normal Capillary Refill, Pedal Edema (equal B/L with chronic appearing venous stasis changes), Arm Pain (Left shoulder, with old appearing sugical scar. Left wrist tender.), Limited Range of Motion (Left shoulder and wrist due to pain, with no visible swelling, redness, bruising, or deformity.). No: Joint Swelling, Leg Pain Neurological: Alert, Oriented, No Motor/Sensory Deficits Psychiatric: Normal Mood Skin Exam: Warm, Dry Course - Vital Signs Last Recorded V/S: Last Vital Signs Temp 97.2 F 09/11/19 10:33 Pulse 68 09/11/19 10:33 Resp 18 09/11/19 10:33 BP 88/57 L 01/31/20 10:33 Pulse Ox 95 09/11/19 10:33 - Orders/Labs/Meds Meds: Medications Discontinued Medications Generic Name Dose Route Start Last Admin Trade Name Brooke PRN Reason Stop Dose Admin Lidocaine HCl 15 gm 09/11/19 11:40 Lidocaine 5% TOP 09/11/19 11:41 ONETIME ONE - Radiology Interpretation Free Text/Narrative:: XR Left wrist: no acute fractures see radiology report. XR Left shoulder: intact hardware, no acute fractures, see radiologist's report. 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 Follow directions on package or label. Continue current pain medications as prescribed. Use prunes or a stool softener to avoid constipation while taking the pain medication. Follow up in clinic in 1 week if not improving as expected. Sepsis Event Note - Focused Exam Vital Signs: Vital Signs Temp Pulse Resp BP Pulse Ox 09/11/19 10:33 97.2 F 68 18 88/57 L 95 Date Exam was Performed: 09/11/19 Time Exam was Performed: 12:06
[2019-09-11 11:19] VITALS: BP 88/57; PULSE 68
[2019-09-11] MEDS ORDERED: Lidocaine 5% Oint 35.44 GM Tube TOP ONE (11:40)
== END 2019-09-11 12:35 | disposition home or self-care (01) ==
LOC: DL.ED 10:28
DX: M25.512 Pain in left shoulder (principal); M19.032 Primary osteoarthritis, left wrist; I48.91 Unspecified atrial fibrillation; I25.10 Atherosclerotic heart disease of native coronary artery without angina pectoris; N40.0 Benign prostatic hyperplasia without lower urinary tract symptoms; E11.40 Type 2 diabetes mellitus with diabetic neuropathy, unspecified; Z91.048 Other nonmedicinal substance allergy status; Z79.82 Long term (current) use of aspirin; Z79.01 Long term (current) use of anticoagulants; Z95.5 Presence of coronary angioplasty implant and graft; Z79.899 Other long term (current) drug therapy; Z79.84 Long term (current) use of oral hypoglycemic drugs; Z85.828 Personal history of other malignant neoplasm of skin; W00.9XXA Unspecified fall due to ice and snow, initial encounter
CPT/HCPCS: 73030-LT; 73110-LT; 99283-25; A9270-GY

== ENCOUNTER 2019-09-14 10:32 | Emergency (ER) | payer MEDICARE, BC ==
[2019-09-14 10:48] VITALS: BP 102/75; PULSE 89
[2019-09-14] MEDS ORDERED: Sodium Chloride 0.9% 10 ML Syringe FLUSH PRN (11:00)
[2019-09-14] MEDS ORDERED: Lactulose Soln 10 GM/15 ML 30 ML UD Cup PO ONE (11:03)
[2019-09-14] MEDS ORDERED: Bisacodyl 5 MG Tab PO ONE (11:04)
--- NOTE | 2019-09-14 11:06 | EDM.PDOC ---
ED HPI GENERAL MEDICAL PROBLEM - General Chief Complaint: Back Pain or Injury Stated Complaint: AMBULANCE Time Seen by Provider: 09/14/19 10:35 Source of Information: Reports: Patient, Family, Old Records, Provider (Dr. Nunez), RN, RN Notes Reviewed History Limitations: Reports: No Limitations - History of Present Illness INITIAL COMMENTS - FREE TEXT/NARRATIVE: Pt sent to ER from [facility] by Dr. Nunez for evaluation of hypotension. Pt states he feels fatigued and weak in general, and is constipated. He denies feeling symptoms of low BP. He had Hx of frequent falls. He last fell 2 weeks ago and had a CT Spine from clinic showing a minor L1 end plate compression fracture. He was then seen in ER for left shoulder and wrist pain with normal x- rays. Today he c/o left rib pain and "has not been addressed". He has been taking Percocet from Dr. Nunez and now states it made him constipated and his last BM was 3 days ago. He has been eating prunes with some oil, and tried a rectal suppository without producing a BM. Pt has multiple other complaints. Hx of chronic A-fib, HTN, CAD w/stent, hyperlipidemia, DM Type 2, obesity, restless legs, left shoulder replacement, and frequent falls. Pt denies chest pain/pressure, palpitations, N/V, fever, chills, or increasing edema. He admits to cough with sputum, and dark urine. Duration: Week(s): (2-3), Constant, Recurring Location: Reports: Chest, Abdomen, Generalized Left Upper Back Pain Score (Numeric/FACES): 10 - Related Data Allergies Allergy/AdvReac Type Severity Reaction Status Date / Time environmental Allergy Mild Headache Uncoded 09/14/19 10:33 Home Meds: Home Meds Aspirin [Ecotrin EC] 81 mg PO DAILY 11/05/13 [History] Gabapentin [Neurontin] 600 mg PO BID 11/05/13 [History] Glimepiride [Amaryl] 4 mg PO BID 11/05/13 [History] Isosorbide Mononitrate [Imdur] 30 mg PO DAILY 11/05/13 [History] allopurinoL [Zyloprim] 200 mg PO DAILY 11/05/13 [History] Canagliflozin [Invokana] 100 mg PO DAILY 11/28/14 [History] Cetirizine [ZyrTEC] 10 mg PO DAILY 06/29/17 [History] Liraglutide [Victoza] 1.8 mg SUBCUT DAILY 06/29/17 [History] Magnesium 250 mg PO BID 06/29/17 [History] Metoprolol Succinate 25 mg PO DAILY 06/29/17 [History] Niacin [Niacin ER] 750 mg PO QPM 06/29/17 [History] Primidone [Mysoline] 50 mg PO TID 06/29/17 [History] Tamsulosin [Flomax] 0.4 mg PO BIDPC 06/29/17 [History] Verapamil HCl [Verapamil ER] 120 mg PO QPM 06/29/17 [History] Warfarin Sodium [Jantoven] 10 mg PO DAILY 06/29/17 [History] rOPINIRole [Requip] 1 mg PO BEDTIME 06/29/17 [History] Furosemide [Lasix] 20 mg PO DAILY #30 tablet 07/01/17 [Rx] Potassium Chloride [Klor-Con 10] 20 meq PO WITHBREAKFAST 30 Days tab.er [Rx] Cyclobenzaprine [Flexeril] 5 mg PO TID PRN 09/11/19 [History] oxyCODONE HCl/Acetaminophen [Oxycodone-Acetaminophen 5-300] 1 tab PO Q8H PRN [History] Ezetimibe 10 mg PO DAILY 09/14/19 [History] Finasteride 5 mg PO DAILY 09/14/19 [History] Insulin Detemir [Levemir Flextouch] 23 units SQ BEDTIME 09/14/19 [History] Pregabalin 100 mg PO TID 09/14/19 [History] Primidone 50 mg PO DAILY 09/14/19 [History] Rosuvastatin [Crestor] 20 mg PO DAILY 09/14/19 [History] lisinopriL [Lisinopril] 2.5 mg PO DAILY 09/14/19 [History] oxyCODONE HCl/Acetaminophen [Percocet 5-325 mg Tablet] 1 each PO Q8H PRN [History] Past Medical History HEENT History: Reports: Allergic Rhinitis, Hard of Hearing, Sinusitis, Other ( See Below) Other HEENT History: deviated septum Cardiovascular History: Reports: Afib, CAD, High Cholesterol, Stents Other Cardiovascular History: anticoagulant use Respiratory History: Reports: Sleep Apnea Gastrointestinal History: Reports: None Genitourinary History: Reports: BPH, Renal Disease, Retention, Urinary Other Genitourinary History: renal cyst, ED, frequency Musculoskeletal History: Reports: Arthritis, Osteoarthritis Other Musculoskeletal History: Left wrist fracture. 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 Immunologic History: Reports: None Oncologic (Cancer) History: Reports: Other (See Below) Other Oncologic History: skin cancer Dermatologic History: Reports: Other (See Below) Other Dermatologic History: actinic keratosis, BCC, - Infectious Disease History Infectious Disease History: Reports: Chicken Pox - Past Surgical History Cardiovascular Surgical History: Reports: Coronary Artery Stent, Other (See Below) Other Cardiovascular Surgeries/Procedures: loop recorder 2 weeks ago GI Surgical History: Reports: Colonoscopy Musculoskeletal Surgical History: Reports: Carpal Tunnel, Shoulder Surgery Social & Family History - Family History Family Medical History: Noncontributory Cardiac: Reports: Heart Failure, Other (See Below) Other Cardiac Family History: "son had a hole in his heart" Musculoskeletal: Reports: Arthritis Hematologic: Reports: Other (See Below) Other Hematologic Family History: pernicious anemia Other Oncologic Family History: uncle had cancer. unable to recall which type - Tobacco Use Smoking Status *Q: Never Smoker Second Hand Smoke Exposure: No - Caffeine Use Caffeine Use: Reports: None - Living Situation & Occupation Living situation: Reports: , with Spouse Occupation: Retired ED ROS GENERAL - Review of Systems Review Of Systems: Comprehensive ROS is negative, except as noted in HPI. ED EXAM, GENERAL - Physical Exam Exam: See Below Exam Limited By: No Limitations General Appearance: Alert, No Apparent Distress, Obese, Other (Chronically ill appearing) Nose: Normal Inspection, Normal Mucosa, No Blood Throat/Mouth: Normal Inspection, Normal Lips, Normal Voice, No Airway Compromise Head: Atraumatic, Normocephalic Neck: Normal Inspection, Supple, Non-Tender, Full Range of Motion Respiratory/Chest: No Respiratory Distress, No Accessory Muscle Use, Decreased Breath Sounds, Other (Left anterior and lateral chest wall tenderness, no deformity, or agata crepitus, no visible bruising, swelling, erythema, or rash.) Cardiovascular: Irregularly Irregular GI/Abdominal: Normal Bowel Sounds, Soft, Non-Tender, No Organomegaly, No Distention, No Abnormal Bruit. No: Guarding, Rigid (Male) Exam: Deferred Rectal (Males) Exam: Deferred Back Exam: Paraspinal Tenderness (left T&L regions) Extremities: Normal Capillary Refill, Pedal Edema (trace), Limited Range of Motion (left shoulder, chronic/stable), Other (venous stasis skin changes to B/ L lower extremities). No: Joint Swelling Neurological: Alert, Oriented, CN II-XII Intact, No Motor/Sensory Deficits, Other (Generalized weakness/deconditioning) Psychiatric: Depressed Mood, Flat Affect Skin Exam: Warm, Dry, Intact EKG INTERPRETATION EKG Date: 09/14/19 Time: 11:09 Rhythm: A-Fib (with RVR) Rate (Beats/Min): 150 [place]: Normal P-Wave: Absent QRS: RBBB (LPFB, Inferior Q waves) ST-T: Other (non-specific T wave chagnes) QT: Normal Comparison: Change From Previous EKG Course - Vital Signs Last Recorded V/S: Last Vital Signs Temp 98.3 F 09/14/19 10:28 Pulse 89 09/14/19 10:28 Resp 20 09/14/19 10:28 BP 102/75 09/14/19 10:28 Pulse Ox 97 09/14/19 10:28 Orthostatic Blood Pressure [ 97/78 Standing] Orthostatic Blood Pressure [ 107/92 Sitting] Orthostatic Blood Pressure [ 119/79 Supine] - Orders/Labs/Meds Orders: Active Orders 24 hr Category Date Time Status EKG 12 Lead [EKG Documentation Completion] [RC] STAT Care 09/14/19 11:02 Active Orthostatic Vital Signs [RC] ASDIRECTED Care 09/14/19 11:02 Active Peripheral IV Care [RC] . DIRECTED Care 09/14/19 11:01 Active CULTURE BLOOD [BC] Stat Lab 09/14/19 11:13 Received CULTURE BLOOD [BC] Stat Lab 09/14/19 11:17 Received UA RFX CRISTO AND CULT IF INDIC [URIN] Stat Lab 09/14/19 10:59 Ordered Sodium Chloride 0.9% [Saline Flush] Med 09/14/19 11:00 Active 10 ml FLUSH ASDIRECTED PRN Blood Culture x2 Reflex Set [OM.PC] Stat Oth 09/14/19 10:59 Ordered Peripheral IV Insertion Adult [OM.PC] Stat Oth 09/14/19 10:59 Ordered Medication Orders Sodium Chloride (Saline Flush) 10 ml FLUSH ASDIRECTED PRN PRN Reason: Keep Vein Open Labs: Laboratory Tests 09/14/19 09/14/19 09/14/19 Range/Units 11:13 11:13 11:13 WBC 8.9 (5.0-10.0) 10^3/uL RBC 3.83 L (4.6-6.2) 10^6/uL Hgb 12.9 L D (14.0-18.0) g/dL Hct 37.9 L (40.0-54.0) % MCV 99.0 D (80-100) fL MCH 33.7 (27.0-34.0) pg MCHC 34.0 (33.0-35.0) g/dL Plt Count 179 (150-450) 10^3/uL Neut % (Auto) 73.1 (42.2-75.2) % Lymph % (Auto) 13.6 L (20.5-50.1) % [place] % (Auto) 11.7 H (2-8) % Eos % (Auto) 1.4 (1.0-3.0) % Baso % (Auto) 0.2 (0.0-1.0) % PT 17.3 H (9.0-12.0) SEC INR 1.7 H (0.9-1.2) APTT 39.7 H (22.0-34.0) SEC Sodium 129 L (135-145) mmol/L Potassium 5.5 H (3.6-5.0) mmol/L Chloride 93 L (101-111) mmol/L Carbon Dioxide 25.0 (21.0-31.0) mmol/L Anion Gap 16.5 BUN 43 H (7-18) mg/dL Creatinine 1.6 H (0.6-1.3) mg/dL Est Cr Clr Drug Dosing 49.95 mL/min Estimated GFR (MDRD) 43 BUN/Creatinine Ratio 26.87 Glucose 308 H (74-105) mg/dL Lactic Acid (0.5-2.0) mmol/L Calcium 9.0 (8.4-10.2) mg/dl Magnesium 1.8 (1.8-2.5) mg/dL Total Bilirubin 1.0 (0.2-1.0) mg/dL AST 45 H (10-42) IU/L ALT 34 (10-60) IU/L Alkaline Phosphatase 274 H (42-121) IU/L Troponin I (0.00-0.02) ng/ml B-Natriuretic Peptide 1200 H (0-100) pg/ml Total Protein 7.1 (6.7-8.2) g/dl Albumin 2.9 L (3.2-5.5) g/dl Globulin 4.2 Albumin/Globulin Ratio 0.69 TSH, Ultra Sensitive (0.45-5.33) uIu/mL 09/14/19 09/14/19 09/14/19 Range/Units 11:13 11:13 11:13 WBC (5.0-10.0) 10^3/uL RBC (4.6-6.2) 10^6/uL Hgb (14.0-18.0) g/dL Hct (40.0-54.0) % MCV (80-100) fL MCH (27.0-34.0) pg MCHC (33.0-35.0) g/dL Plt Count (150-450) 10^3/uL Neut % (Auto) (42.2-75.2) % Lymph % (Auto) (20.5-50.1) % [place] % (Auto) (2-8) % Eos % (Auto) (1.0-3.0) % Baso % (Auto) (0.0-1.0) % PT (9.0-12.0) SEC INR (0.9-1.2) APTT (22.0-34.0) SEC Sodium (135-145) mmol/L Potassium (3.6-5.0) mmol/L Chloride (101-111) mmol/L Carbon Dioxide (21.0-31.0) mmol/L Anion Gap BUN (7-18) mg/dL Creatinine (0.6-1.3) mg/dL Est Cr Clr Drug Dosing mL/min Estimated GFR (MDRD) BUN/Creatinine Ratio Glucose (74-105) mg/dL Lactic Acid 2.2 H* (0.5-2.0) mmol/L Calcium (8.4-10.2) mg/dl Magnesium (1.8-2.5) mg/dL Total Bilirubin (0.2-1.0) mg/dL AST (10-42) IU/L ALT (10-60) IU/L Alkaline Phosphatase (42-121) IU/L Troponin I 0.03 H* (0.00-0.02) ng/ml B-Natriuretic Peptide (0-100) pg/ml Total Protein (6.7-8.2) g/dl Albumin (3.2-5.5) g/dl Globulin Albumin/Globulin Ratio TSH, Ultra Sensitive 6.24 H (0.45-5.33) uIu/mL Meds: Medications Generic Name Dose Route Start Last Admin Trade Name Freq PRN Reason Stop Dose Admin Sodium Chloride 10 ml 09/14/19 11:00 Saline Flush FLUSH ASDIRECTED PRN Keep Vein Open Discontinued Medications Generic Name Dose Route Start Last Admin Trade Name Freq PRN Reason Stop Dose Admin Bisacodyl 5 mg 09/14/19 11:04 09/14/19 11:57 Dulcolax PO 09/14/19 11:05 5 mg ONETIME ONE Administration Lactulose 40 gm 09/14/19 11:03 09/14/19 11:57 Cephulac PO 09/14/19 11:04 40 gm ONETIME ONE Administration - Radiology Interpretation Free Text/Narrative:: [facility] Final Radiology Report Call: [phone] assistance Online chat: [email or web address] Name: ARIC PHILLIPS Age: 68Years M Date: 09/14/2019 SSN: -- : 1950 Study: XR CHEST 2 VIEWS FRONTAL & LAT Requesting Physician: VICTOR MANUEL BARRIENTOS Images: 2 Addl Studies: Provided Clinical History: Contrast: Contrast Medium: Contrast Amount: Contrast Method: CONFIDENTIALITY STATEMENT This report is intended only for use by the referring physician, and only in accordance with law. If you received this in error, call [phone]. Page 1 of 1 PROCEDURE INFORMATION: Exam: XR Chest, 2 Views Exam date and time: 09/14/2019 11:13 AM Age: 68 years old Clinical indication: Other: Productive cough, short of breath TECHNIQUE: Imaging protocol: XR of the chest Views: 2 views. COMPARISON: CR Chest 1V Frontal 10/06/2017 9:26 PM FINDINGS: Lungs: No focal consolidation. There is some interstitial changes which appear chronic and stable. Pleural space: No visible pleural effusion. No pneumothorax. Heart/Mediastinum: Stable cardiomegaly. Single lead pacer present. Bones/joints: No acute findings. Left shoulder replacement partially visualized. Loose bodies and degenerative changes right shoulder. IMPRESSION: No evidence of acute finding. Thank you for allowing us to participate in the care of your patient. Dictated and Authenticated by: Magdalena Blunt MD 09/14/2019 12:17 PM Central Time ([place] & [place]) [facility] Final Radiology Report Call: [phone] assistance Online chat: [email or web address] Name: ARIC PHILLIPS Age: 68Years M Date: 09/14/2019 SSN: -- : 1950 Study: XR RIBS 2 VIEWS LEFT Requesting Physician: VICTOR MANUEL BARRIENTOS Images: 2 Addl Studies: Provided Clinical History: Contrast: Contrast Medium: Contrast Amount: Contrast Method: CONFIDENTIALITY STATEMENT This report is intended only for use by the referring physician, and only in accordance with law. If you received this in error, call [phone]. Page 1 of 1 PROCEDURE INFORMATION: Exam: XR Left Ribs Exam date and time: 09/14/2019 11:32 AM Age: 68 years old Clinical indication: Other: Left rib pain, fall 2 weeks ago TECHNIQUE: Imaging protocol: XR Left ribs. Views: 2 views. COMPARISON: CR Chest 2V 09/14/2019 11:13 AM FINDINGS: Bones/joints: No definite acute to subacute fracture visualized ribs with 2 views of the mid to lower ribs provided. Spinal degenerative changes. Soft tissues: Normal. IMPRESSION: No definite acute to subacute fracture of the imaged ribs. Thank you for allowing us to participate in the care of your patient. Dictated and Authenticated by: Magdalena Blunt MD 09/14/2019 12:18 PM Central Time ( & [place]) [facility] Final Radiology Report Call: [phone] assistance Online chat: [email or web address] Name: ARIC PHILLIPS Age: 68Years M Date: 09/14/2019 SSN: -- : 1950 Study: XR ABDOMEN 1 VIEW Requesting Physician: VICTOR MANUEL BARRIENTOS Images: 2 Addl Studies: Provided Clinical History: Contrast: Contrast Medium: Contrast Amount: Contrast Method: CONFIDENTIALITY STATEMENT This report is intended only for use by the referring physician, and only in accordance with law. If you received this in error, call [phone]. Page 1 of 1 PROCEDURE INFORMATION: Exam: XR Abdomen, 1 View Exam date and time: 09/14/2019 11:37 AM Age: 68 years old Clinical indication: Other: Constipation TECHNIQUE: Imaging protocol: XR of the abdomen. Views: Frontal supine view of the abdomen. 1 View. COMPARISON: No relevant prior studies available. FINDINGS: Gastrointestinal tract: There is moderate stool scattered throughout colon greatest in right colon. There is air throughout colon and the valgus pattern is nonobstructive. Bones/joints: Degenerative changes in spine. Mild degenerative changes suspected fracture. IMPRESSION: Moderate quantity of stool. Thank you for allowing us to participate in the care of your patient. Dictated and Authenticated by: Magdalena Blunt MD 09/14/2019 12:20 PM Central Time ([place] & [place]) - Re-Assessments/Exams Free Text/Narrative Re-Assessment/Exam: 09/14/19 13:00 Pt noted to have heart rate in 80's on arrival to ER. While talking to the pt the the monitor showed his heart rate to increase to 150, which was confirmed by EKG. The pt cannot perceive when his heart rate is rapid. Pt's BP dropped to 89/55 without any symptoms. Pt warrants admission, but I think he should be admitted to [facility] in where cardiology/EP consultation is available. Pt and family agree. Pt is accepted as a direct admit via [facility] ground ambulance transfer by Dr. Dong. No rate control intervention will be initiated at this time due to the heart rate randomly returning to 80s and not remaining as sustained RVR. Departure - Departure Time of Disposition: 13:17 Disposition: DC/Tfer to Acute Hospital 02 Condition: Serious Clinical Impression: Chronic atrial fibrillation, Atrial fibrillation with rapid ventricular response, Frequent falls, Constipation due to opioid therapy, Left-sided chest wall pain Hypotension Qualifiers: Hypotension type: other hypotension type Qualified Code(s): I95.89 - Other hypotension CKD (chronic kidney disease) Qualifiers: Chronic kidney disease stage: unspecified stage Qualified Code(s): N18.9 - Chronic kidney disease, unspecified - Discharge Information *PRESCRIPTION DRUG MONITORING PROGRAM REVIEWED*: No *COPY OF PRESCRIPTION DRUG MONITORING REPORT IN PATIENT QUENTIN: No Forms: ED Department Discharge, Interfacility Transfer EMTALA Sepsis Event Note - Evaluation Sepsis Screening Result: No Definite Risk - Focused Exam Vital Signs: Vital Signs Temp Pulse Resp BP Pulse Ox 09/14/19 10:28 98.3 F 89 20 102/75 97 Date Exam was Performed: 09/14/19 Time Exam was Performed: 13:17 - My Orders Last 24 Hours: My Active Orders 09/14/19 10:59 UA RFX CRISTO AND CULT IF INDIC [URIN] Stat Blood Culture x2 Reflex Set [OM.PC] Stat Peripheral IV Insertion Adult [OM.PC] Stat 09/14/19 11:00 Sodium Chloride 0.9% [Saline Flush] 10 ml FLUSH ASDIRECTED PRN 09/14/19 11:01 Peripheral IV Care [RC] . DIRECTED 09/14/19 11:02 EKG 12 Lead [EKG Documentation Completion] [RC] STAT Orthostatic Vital Signs [RC] ASDIRECTED 09/14/19 11:13 CULTURE BLOOD [BC] Stat 09/14/19 11:17 CULTURE BLOOD [BC] Stat - Assessment/Plan Last 24 Hours: My Active Orders 09/14/19 10:59 UA RFX CRISTO AND CULT IF INDIC [URIN] Stat Blood Culture x2 Reflex Set [OM.PC] Stat Peripheral IV Insertion Adult [OM.PC] Stat 09/14/19 11:00 Sodium Chloride 0.9% [Saline Flush] 10 ml FLUSH ASDIRECTED PRN 09/14/19 11:01 Peripheral IV Care [RC] . DIRECTED 09/14/19 11:02 EKG 12 Lead [EKG Documentation Completion] [RC] STAT Orthostatic Vital Signs [RC] ASDIRECTED 09/14/19 11:13 CULTURE BLOOD [BC] Stat 09/14/19 11:17 CULTURE BLOOD [] Stat
[2019-09-14 11:43] LABS: ANION GAP 16.5
== END 2019-09-14 13:53 ==
LOC: DL.ED 10:32
DX: I48.20 Chronic atrial fibrillation, unspecified (principal); I95.9 Hypotension, unspecified; K59.03 Drug induced constipation; T40.2X5A Adverse effect of other opioids, initial encounter; R07.89 Other chest pain; E11.22 Type 2 diabetes mellitus with diabetic chronic kidney disease; I12.9 Hypertensive chronic kidney disease with stage 1 through stage 4 chronic kidney disease, or unspecified chronic kidney disease; N18.9 Chronic kidney disease, unspecified; R29.6 Repeated falls; I25.10 Atherosclerotic heart disease of native coronary artery without angina pectoris; E78.5 Hyperlipidemia, unspecified; E11.40 Type 2 diabetes mellitus with diabetic neuropathy, unspecified; M19.90 Unspecified osteoarthritis, unspecified site; N40.0 Benign prostatic hyperplasia without lower urinary tract symptoms; G25.81 Restless legs syndrome; E78.00 Pure hypercholesterolemia, unspecified; E66.9 Obesity, unspecified; Z79.82 Long term (current) use of aspirin; Z68.34 Body mass index [BMI] 34.0-34.9, adult; Z95.5 Presence of coronary angioplasty implant and graft; Z79.899 Other long term (current) drug therapy; Z79.4 Long term (current) use of insulin; Z79.02 Long term (current) use of antithrombotics/antiplatelets; Z79.01 Long term (current) use of anticoagulants; Z91.09 Other allergy status, other than to drugs and biological substances
CPT/HCPCS: 36415; 71046; 71100; 74018; 80053; 83605; 83735; 83880; 84443; 84484; 85025; 85610; 85730; 87040; 93005; 99285; A9270